=== PATIENT | female | born 1955 | race Caucasian/White ===

== ENCOUNTER → 2019-07-28 | Outpatient (CLI) | payer MEDICARE, OTHER ==
[2019-07-28 11:03] VITALS: BP 140/84; PULSE 100; RESP 20; TEMP 98.6
--- NOTE | 2019-07-28 11:51 | P.GSHP ---
History of Present Illness H&P Date: 07/28/19 Chief Complaint: Abnormal left breast mammogram Tamy is a 64-year-old white female who had a first time mammogram performed at the beginning of May as per the patient. She was told the right side was OKm however, a lesion was seen of the left breast. She then had a left breast diagnostic mammogram which revealed a 4 mm spiculated density along the superior portion of the left breast visible on slice #24 out of 29. And on the MLO slice #40 out of 65. 3-D stereotactic core biopsy is recommended. The patient had an ultrasound done on the same date and the ultrasound revealed a hypoechoic lesion at the superior 11:00 oclock portion without acoustic enhancement the findings were not consistent with a simple cyst. The lesion was felt to be too small to characterize on ultrasound. The patient does not feel any masses or nodules in her breast. She is not complaining of any nipple discharge or skin changes. She has not had any recent history of trauma or infection in the breast. She does not take hormones. She drinks coffee several pots/day. She does not eat chocolate. She smokes 1 pack/4 days. Family history: Negative Hormonal history: Menarche: 12 , breast fed: none, age at first : 16 menopause: hysterectomy at 45, she believes took ovaries, done at the time of a bladder suspension BCP: none hormones: none Surgical history: Total abdominal hysterectomy 3 C-sections appy Medical History: arthritis Social History: smoke: 1 pack/ 4 days for 45 years alcohol: none drugs: none - Constitutional Constitutional: Denies chills, Denies fever - EENT Eyes: bilateral blurred vision (beginning of macular degeneration) Ears: deny: decreased hearing, tinnitus Ears, nose, mouth and throat: Denies headache, Denies sore throat - Breasts Breasts: bilateral: as per HPI - Cardiovascular Cardiovascular: Denies chest pain, Denies shortness of breath - Respiratory Comment: COPD Respiratory: Reports cough - Gastrointestinal Comment: PUD Gastrointestinal: Denies abdominal pain, Denies diarrhea, Denies nausea, Denies vomiting - Genitourinary (Female) Genitourinary: Denies dysuria, Denies hematuria - Menstruation Menstruation: Reports post hysterectomy - Musculoskeletal Comment: back pain, arthritis - Integumentary Integumentary: Reports pruritus, Denies rash - Neurological Neurological: Denies numbness, Denies weakness - Psychiatric Psychiatric: Reports depression, Denies anxiety - Endocrine Comment: gained weight with pandemic Endocrine: Reports weight change, Denies fatigue - Hematologic/Lymphatic Comment: none - Allergic/Immunologic Allergic/Immunologic: Reports as per HPI Past Medical History History of Any Multi-Drug Resistant Organisms: None Reported Smoking Status: Current every day smoker Medications and Allergies Home Medications Medication Instructions Recorded Confirmed Type Albuterol Sulfate [Albuterol 1 puff PO Q4-6H 07/28/19 07/28/19 History Sulfate Hfa] Alendronate Sodium [Fosamax] 5 mg PO DAILY 07/28/19 07/28/19 History Beclomethasone Dip 80 Mcg/Puff 1 puff INHALATION TID 07/28/19 07/28/19 History [Qvar 80 mcg] Cyclobenzaprine [Flexeril] 10 mg PO TID 07/28/19 07/28/19 History LORazepam [Ativan] 1 mg PO BID 07/28/19 07/28/19 History Levothyroxine Sodium [Synthroid] 50 mcg PO DAILY 07/28/19 07/28/19 History Omeprazole [PriLOSEC] 40 mg PO DAILY 07/28/19 07/28/19 History Allergies Allergy/AdvReac Type Severity Reaction Status Date / Time No Known Allergies Allergy Unverified 07/28/19 11:03 Surgical - Exam Vital Signs Temp Pulse Resp BP Pulse Ox 98.6 F 100 20 140/84 97 07/28/19 10:58 07/28/19 10:58 07/28/19 10:58 07/28/19 10:58 07/28/19 10:58 BMI 30.1 - General well developed, well nourished, no distress - Eyes normal ocular movement - ENT no hearing loss, no congestion - Neck no masses, trachea midline - Respiratory normal expansion, normal respiratory effort, clear to auscultation - Cardiovascular Rhythm: regular Heart Sounds: normal: S1, S2 - Abdomen Abdomen: soft, non tender, no guarding, no rigid, no rebound - Integumentary normal turgor - Neurologic no disoriented, no combative - Musculoskeletal normal gait, normal posture - Psychiatric oriented to time, oriented to person, oriented to place, speech is normal, memory intact breast exam: BRA 36B inspection: Right breast smaller than left breast, ptosis grade 2 bilateral Palpation: Right breast: Multi-positional exam fibrocystic changes, no dominant masses or nodules of concern Right axilla: No adenopathy of concern Left breast: Multi-positional exam no dominant masses or nodules of concern Left axilla: No adenopathy of concern Results Mammogram and ultrasound report of the left breast reviewed Have requested that the mammogram report of the right breast BX obtained Assessment and Plan Assessment: Impression: 1. Asymmetry of the breast 2. Radiographic abnormality left breast 3. Radiograph report of the right breast is not available 4. Arthritis/back pain 5. depression/ patient takes ativan 1 mg BID as needed Plan: 1. 3-D stereotactic core biopsy of the left breast 2. Obtain radiograph report of mammogram of the right breast 3. follow up after biopsy Encounter 45 minutes, greater than 50% of time in planning and counselling CC: Dr. Aguilera Time with Patient: Greater than 30
== END | disposition home or self-care (01) ==
LOC: WWCWWP 10:42
PROVIDERS: ATTEND Surgery
DX: Z53.9 Procedure and treatment not carried out, unspecified reason (principal)

== ENCOUNTER → 2019-08-12 | Outpatient (CLI) | payer MEDICARE, OTHER ==
[2019-08-12 14:50] VITALS: BP 146/84; PULSE 97; RESP 20; TEMP 98.4
--- NOTE | 2019-08-12 15:22 | P.PN ---
Subjective Progress Note Date: 08/12/19 Principal diagnosis: left breast stage 1A cancer; [id number]+/FL+ Her2-G1 Tamy is a 64-year-old white female who had a first time mammogram performed at the beginning of May as per the patient. She was told the right side was OKm however, a lesion was seen of the left breast. She then had a left breast diagnostic mammogram which revealed a 4 mm spiculated density along the superior portion of the left breast visible on slice #24 out of 29. And on the MLO slice #40 out of 65. 3-D stereotactic core biopsy is recommended. The patient had an ultrasound done on the same date and the ultrasound revealed a hypoechoic lesion at the superior 11:00 oclock portion without acoustic enhancement the findings were not consistent with a simple cyst. The lesion was felt to be too small to characterize on ultrasound. The patient does not feel any masses or nodules in her breast. She is not complaining of any nipple discharge or skin changes. She has not had any recent history of trauma or infection in the breast. She does not take hormones. She drinks coffee several pots/day. She does not eat chocolate. She smokes 1 pack/4 days. Tamy underwent a stero biopsy 3D at [facility] on 08-04-19. Pathology was a G1 ER+/FL+ invasive ductal cancer. Her 2- She is not complaining of any porblems related to the biopsy. Family history: Negative Hormonal history: Menarche: 12 , breast fed: none, age at first : 16 menopause: hysterectomy at 45, she believes took ovaries, done at the time of a bladder suspension BCP: none hormones: none Surgical history: Total abdominal hysterectomy 3 C-sections appy Medical History: arthritis Social History: smoke: 1 pack/ 4 days for 45 years alcohol: none drugs: none - Constitutional Constitutional: Denies chills, Denies fever - EENT Eyes: bilateral blurred vision (beginning of macular degeneration) Ears: deny: decreased hearing, tinnitus Ears, nose, mouth and throat: Denies headache, Denies sore throat - Breasts Breasts: bilateral: as per HPI - Cardiovascular Cardiovascular: Denies chest pain, Denies shortness of breath - Respiratory Comment: COPD Respiratory: Reports cough - Gastrointestinal Comment: PUD Gastrointestinal: Denies abdominal pain, Denies diarrhea, Denies nausea, Denies vomiting - Genitourinary (Female) Genitourinary: Denies dysuria, Denies hematuria - Menstruation Menstruation: Reports post hysterectomy - Musculoskeletal Comment: back pain, arthritis - Integumentary Integumentary: Reports pruritus, Denies rash - Neurological Neurological: Denies numbness, Denies weakness - Psychiatric Psychiatric: Reports depression, Denies anxiety - Endocrine Comment: gained weight with pandemic Endocrine: Reports weight change, Denies fatigue - Hematologic/Lymphatic Comment: none - Allergic/Immunologic Allergic/Immunologic: Reports as per HPI Past Medical History History of Any Multi-Drug Resistant Organisms: None Reported Smoking Status: Current every day smoker Medications and Allergies Home Medications Medication Instructions Recorded Confirmed Type Albuterol Sulfate [Albuterol 1 puff PO Q4-6H 07/28/19 07/28/19 History Sulfate Hfa] Alendronate Sodium [Fosamax] 5 mg PO DAILY 07/28/19 07/28/19 History Beclomethasone Dip 80 Mcg/Puff 1 puff INHALATION TID 07/28/19 07/28/19 History [Qvar 80 mcg] Cyclobenzaprine [Flexeril] 10 mg PO TID 07/28/19 07/28/19 History LORazepam [Ativan] 1 mg PO BID 07/28/19 07/28/19 History Levothyroxine Sodium [Synthroid] 50 mcg PO DAILY 07/28/19 07/28/19 History Omeprazole [PriLOSEC] 40 mg PO DAILY 07/28/19 07/28/19 History Allergies Allergy/AdvReac Type Severity Reaction Status Date / Time No Known Allergies Allergy Unverified 07/28/19 11:03 Objective - Exam BMI 30.1 - Constitutional General appearance: Present: cooperative - EENT Eyes: Present: EOMI ENT: Present: hearing grossly normal - Respiratory Respiratory: bilateral: CTA - Cardiovascular Rhythm: regular Heart sounds: normal: S1, S2 - Integumentary Integumentary: Present: normal turgor - Musculoskeletal Musculoskeletal: Present: gait normal - Psychiatric Psychiatric: Present: A&O x's 3, appropriate affect, intact judgment & insight - Additional findings Additional findings: breast exam: left breast: biopsy site clean and no evidence of infection Assessment and Plan Assessment: Impression: 1. Left breast stage IA invasive ductal carcinoma Plan: 1. Left breast needle localization lumpectomy, possible mastopexy incision, possible oncoplastic tissue transfer 2. Left axillary sentinel node injection, left axillary sentinel node biopsy, possible axillary node dissection left Risk and benefits of the procedure discussed with the patient. Risks include but are not limited to bleeding, infection, possible reaction to the anesthetic. The possibility of positive margins which required reexcision were discussed. Surgical treatment options of the breast included mastectomy plus or minus reconstruction versus lumpectomy via needle local. The patient is not interested in a mastectomy or plastic surgery consult. [place] biopsy and possible axillary node dissection were discussed as well. Risks including but not limited to possible lymphedema, decreased sensation to the inner arm were discussed. The patient understands and wishes to proceed. Veronica Velez nurse navigator was present to talk with the patient as well. CC: Ale (Webb) encounter 40 minutes, > 50% of time spent in planning and counselling Time with Patient: Greater than 30
== END | disposition home or self-care (01) ==
LOC: WWCWWP 14:24
PROVIDERS: ATTEND Surgery
DX: Z53.9 Procedure and treatment not carried out, unspecified reason (principal)

== ENCOUNTER → 2019-09-16 | Outpatient (CLI) | payer MEDICARE, OTHER ==
[2019-09-16 15:27] VITALS: BP 123/60; PULSE 103; RESP 18; TEMP 98.3
--- NOTE | 2019-09-16 15:47 | P.PN ---
Subjective Progress Note Date: 09/16/19 Principal diagnosis: Stage 1A left breast cancer [id number]+/Pr+ Her2- G1 left breast stage 1A cancer; [id number]+/AZ+ Her2-G1 Tamy is a 64-year-old white female who had a first time mammogram performed at the beginning of May as per the patient. She was told the right side was OK however, a lesion was seen of the left breast. She then had a left breast diagnostic mammogram which revealed a 4 mm spiculated density along the superior portion of the left breast visible on slice #24 out of 29. And on the MLO slice #40 out of 65. 3-D stereotactic core biopsy is recommended. The patient had an ultrasound done on the same date and the ultrasound revealed a hypoechoic lesion at the superior 11:00 oclock portion without acoustic enhancement the findings were not consistent with a simple cyst. The lesion was felt to be too small to characterize on ultrasound. The patient does not feel any masses or nodules in her breast. She is not complaining of any nipple discharge or skin changes. She has not had any recent history of trauma or infection in the breast. She does not take hormones. She drinks coffee several pots/day. She does not eat chocolate. She smokes 1 pack/4 days. Tamy underwent a stero biopsy 3D at [facility] on 08-04-19. Pathology was a G1 ER+/AZ+ invasive ductal cancer. Her 2- She is not complaining of any porblems related to the biopsy. Family history: Negative Hormonal history: Menarche: 12 , breast fed: none, age at first : 16 menopause: hysterectomy at 45, she believes took ovaries, done at the time of a bladder suspension BCP: none hormones: none Surgical history: Total abdominal hysterectomy 3 C-sections appy Medical History: arthritis Social History: smoke: 1 pack/ 4 days for 45 years alcohol: none drugs: none - Constitutional Constitutional: Denies chills, Denies fever - EENT Eyes: bilateral blurred vision (beginning of macular degeneration) Ears: deny: decreased hearing, tinnitus Ears, nose, mouth and throat: Denies headache, Denies sore throat - Breasts Breasts: bilateral: as per HPI - Cardiovascular Cardiovascular: Denies chest pain, Denies shortness of breath - Respiratory Comment: COPD Respiratory: Reports cough - Gastrointestinal Comment: PUD Gastrointestinal: Denies abdominal pain, Denies diarrhea, Denies nausea, Denies vomiting - Genitourinary (Female) Genitourinary: Denies dysuria, Denies hematuria - Menstruation Menstruation: Reports post hysterectomy - Musculoskeletal Comment: back pain, arthritis - Integumentary Integumentary: Reports pruritus, Denies rash - Neurological Neurological: Denies numbness, Denies weakness - Psychiatric Psychiatric: Reports depression, Denies anxiety - Endocrine Comment: gained weight with pandemic Endocrine: Reports weight change, Denies fatigue - Hematologic/Lymphatic Comment: none - Allergic/Immunologic Allergic/Immunologic: Reports as per HPI Past Medical History History of Any Multi-Drug Resistant Organisms: None Reported Smoking Status: Current every day smoker Objective - Vital Signs Vital signs: Vital Signs Temp 98.3 F 09/16/19 15:24 Pulse 103 H 09/16/19 15:24 Resp 18 09/16/19 15:24 BP 123/60 09/16/19 15:24 Pulse Ox 96 09/16/19 15:24 Intake & Output 09/15/19 09/16/19 09/16/19 18:59 06:59 18:59 Weight 77.111 kg - Exam BMI 30.1 - Constitutional General appearance: Present: obese - EENT Eyes: Present: EOMI ENT: Present: hearing grossly normal - Neck Neck: Present: normal ROM - Respiratory Respiratory: bilateral: CTA - Cardiovascular Rhythm: regular Heart sounds: normal: S1, S2 - Gastrointestinal General gastrointestinal: Present: normal bowel sounds, soft - Integumentary Integumentary: Present: normal turgor - Musculoskeletal Musculoskeletal: Present: gait normal - Psychiatric Psychiatric: Present: A&O x's 3, appropriate affect, intact judgment & insight - Additional findings Additional findings: Breast Exam: Bra 36B inspection: This is bilateral grade 2/3, left breast slightly larger than right breast Palpation: Right breast: Multiple positional exam no dominant masses or nodules of concern fibrocystic changes Right axilla: No adenopathy of concern Left breast: Multiple positional exam no dominant masses or nodules of concern, fibrocystic changes Left axilla: No adenopathy of concern Assessment and Plan Assessment: Impression: 1. Left breast stage IA invasive ductal carcinoma 2. pathology done at [facility] must be reviewed here Plan: 1. Left breast needle localization partial mastectomy, possible mastopexy incision, possible adjacent tissue transfer 2. Left axillary sentinel node injection, left axillary sentinel node biopsy, possible axillary node dissection left Risks and benefits of the procedure discussed with the patient. Risks include but are not limited to bleeding, infection, possible reaction to the anesthetic. The possibility of positive margins which would require reexcision were discussed. Surgical treatment options of the breast including mastectomy plus or minus reconstruction versus lumpectomy via no needle localization were discussed. The patient is not interested in mastectomy a plastic surgical consult at this time. Seminal biopsy and possible axillary node dissection were discussed as well. Risks include but are not limited to possible lymphedema, decreased sensation to the interim, bleeding or infection. The patient understands and wishes to proceed. Cc: Dr. Aguilera
== END | disposition home or self-care (01) ==
LOC: WWCWWP 14:35
PROVIDERS: ATTEND Surgery
DX: Z53.9 Procedure and treatment not carried out, unspecified reason (principal)

== ENCOUNTER 2019-09-27 08:58 | Day surgery (SDC) | payer MEDICARE, OTHER ==
[2019-09-21 14:25] VITALS: BMI 30.1
[~2019-09-27 08:58] MED LIST: DEXAMETHASONE SOD PHOSPHATE 10 MG/ML 1 ML VIAL IV ONE; HEPARIN SODIUM,PORCINE 5,000 UNIT/ML 1 ML VIAL SQ ONE; LACTATED RINGERS 1,000 ML IV SCH; LIDOCAINE 1% (10MG/ML) FOR IV START INTRADERMA PRN; MIDAZOLAM 2 MG/2 ML VIAL IV PRN; ONDANSETRON 4 MG/2 ML VIAL IVP ONE; Pre Op ABX Message 1 EACH MISC MISCELLANE ONE; fentaNYL (PF) 50 MCG/ML 2 ML AMP IV PRN
[2019-09-27] MEDS ORDERED: ALPRAZolam 0.25 MG TAB PO ONE (09:32)
[2019-09-27] MEDS ORDERED: ALPRAZolam 0.25 MG TAB ONE (09:33)
[2019-09-27] MEDS ORDERED: LIDOCAINE 1% INJ 10MG/ML (20 ML MDV) SQ ONE ×3 (10:31→14:44)
[2019-09-27] MEDS ORDERED: HEPARIN SODIUM,PORCINE 5,000 UNIT/ML 1 ML VIAL ONE (11:23)
[2019-09-27] MEDS ORDERED: ONDANSETRON 4 MG/2 ML VIAL ONE (11:23)
[2019-09-27] MEDS ORDERED: PROPOFOL 10 MG/ML 20 ML VIAL IV ONE (12:59)
[2019-09-27] MEDS ORDERED: fentaNYL (PF) 50 MCG/ML 2 ML AMP ONE (12:59)
[2019-09-27] MEDS ORDERED: PHENYLEPHRINE-0.9% NACL SYG 1 MG/10 ML SYRINGE ONE (12:59)
[2019-09-27] MEDS ORDERED: ePHEDrine SULFATE/0.9% NACL/PF 50 MG/5 ML SYRINGE IV ONE (12:59)
[2019-09-27] MEDS ORDERED: SUCCINYLCHOLINE CHLORIDE 100 MG/5 ML SYR IV ONE (12:59)
[2019-09-27] MEDS ORDERED: LIDOCAINE 1% INJ 10MG/ML (20 ML MDV) ONE (12:59)
[2019-09-27] MEDS ORDERED: MIDAZOLAM 2 MG/2 ML VIAL ONE (12:59)
--- NOTE | 2019-09-27 13:26 | NM ---
EXAMINATION TYPE: NM sentinel node injection DATE OF EXAM: 09/27/2019 COMPARISON: NONE INDICATION: Abnormal mammogram. Informed consent was obtained. A timeout was performed. The area around the left nipple was cleansed with alcohol. The skin was anesthetized with 1% Lidocai ne with sodium bicarbonate. In a single dose, a total of 498 millicuries Technetium 99m Tilmanocept was injected. The patient tolerated the procedure very well. IMPRESSIONS: 1.. Successful injection for sentinel node evaluation.
[2019-09-27] MEDS ORDERED: LACTATED RINGERS 1,000 ML IV ONE (14:20)
--- NOTE | 2019-09-27 14:57 | P.OP ---
Date of Procedure: 09/27/19 Preoperative Diagnosis: Stage IA left breast cancer Postoperative Diagnosis: Same Procedure(s) Performed: Elim node biopsy, partial mastectomy, bronchoplasty tissue transfer, mastopexy Anesthesia: TC Surgeon: Lizabeth Elizondo Estimated Blood Loss (ml): 8 IV fluids (ml): 1,200 Pathology: other (sentinal lymph node, breast tissue) Condition: stable Disposition: same day Indications for Procedure: Core Biopsy-proven stage IA left breast cancer Operative Findings: dense breast tissue Description of Procedure: Tamy is a 64-year-old white female who underwent a biopsy of the lesion in the left breast. This was positive for this invasive ductal carcinoma. She wished to have in the conchal plastic approach with breast conservation to section of the tumor. Following needle localization of the area of concern in the radiology department today and was taken to the operative suite. The sentinel node injection was also performed in the radiology department. Following induction of general anesthesia the left breast and axilla were prepped and draped in a sterile fashion. Using the [place] counter the area of increased radioactivity in the axilla was identified. An incision was made and carried down to the deep lymph nodes. Using the Harmonic scalpel a radioactive lymph node was removed after it was identified. The 10 second count on the node was 18,882. The 10 second background count of the axilla was approximately 54. No other palpable nodes of concern were identified. The wound was irrigated. After we were assured that hemostasis was attained the deep tissues were closed using 3-0 Vicryl suture. The skin was closed using 4-0 Monocryl. Following this the left breast was approached. In the preoperative skin howard were placed for a crescent mastopexy incision. The apex of the crescent was approximately 2 cm above the superior areolar edge. The skin of the crescent was scored. The inferior portion of the crescent was scalloped. The skin was de-epithelialized. The breast tissue was entered within the de- epithelialized zone. Dissection in the anterior mammary fascia was performed up to the shaft of the needle. The shaft of the needle was then brought into the operative wound. The tissue was grasped using Allis clamps. The tissue was dissected down onto the pectoralis major muscle. Circumferential dissection around the needle was performed and the tissue was excised. Following this the medial and lateral pillars of breast tissue were mobilized. Approximately 9 cm x 4 cm a 32 cm of tissue was mobilized medially. Laterally approximately 8 cm x 3 cm of breast tissue was mobilized. This was a total of approximately 50 cm of tissue mobilized. Following this titanium clips were placed to cristiane the cavity. The specimen was painted for orientation. Radiograph revealed the area of concern had been removed. The pillars of tissue had also been free from the pectoralis muscle. After we were assured that hemostasis was attained the pillars were brought together from superior to inferior. They were secured using 3-0 Vicryl suture. The subcutaneous tissues were closed with 3-0 Vicryl suture. A subcuticular 4-0 Monocryl suture was placed. 10 mL of 1% lidocaine was injected into the incision. Steri-Strips were applied to both the breast and axillary incisions. The patient tolerated the procedure in stable condition. All instrument and sponge counts were correct at the end of the case.
--- NOTE | 2019-09-27 14:59 | P.DS ---
Providers Attending physician: Lizabeth Elizondo Primary care physician: Lay Aguilera DO Plan - Discharge Summary Discharge Rx Participant: Yes New Discharge Prescriptions: No Action Alendronate Sodium [Fosamax] 5 mg PO DAILY Albuterol Sulfate [Albuterol Sulfate Hfa] 1 puff PO Q4-6H PRN PRN Reason: Dyspnea Omeprazole [PriLOSEC] 40 mg PO DAILY LORazepam [Ativan] 1 mg PO BID Cyclobenzaprine [Flexeril] 10 mg PO TID Levothyroxine Sodium [Synthroid] 50 mcg PO DAILY Beclomethasone Dip 80 Mcg/Puff [Qvar 80 mcg] 1 puff INHALATION TID Discharge Medication List Albuterol Sulfate [Albuterol Sulfate Hfa] 1 puff PO Q4-6H PRN 07/28/19 [History] Alendronate Sodium [Fosamax] 5 mg PO DAILY 07/28/19 [History] Beclomethasone Dip 80 Mcg/Puff [Qvar 80 mcg] 1 puff INHALATION TID 07/28/19 [History] Cyclobenzaprine [Flexeril] 10 mg PO TID 07/28/19 [History] LORazepam [Ativan] 1 mg PO BID 07/28/19 [History] Levothyroxine Sodium [Synthroid] 50 mcg PO DAILY 07/28/19 [History] Omeprazole [PriLOSEC] 40 mg PO DAILY 07/28/19 [History] Follow up Appointment(s)/Referral(s): Lizabeth Elizondo MD [STAFF PHYSICIAN] - 1 Week Activity/Diet/Wound Care/Special Instructions: do not drive for 24 hours from discharge, do not drive if taking narcotic pain medication May shower after 48 hours wear bra at all times Discharge Disposition: HOME SELF-CARE
--- NOTE | 2019-09-27 15:01 | P.NAPBC ---
NAPBC Queries - NAPBC Queries Was patient's case review presented at [facility] tumor board? If no, comment.: Yes Was patient's pathology reviewed at [facility]? If no, comment.: Yes Was breast conservation surgery offered? If no, comment.: Yes Was sentinel node biopsy offered? If no, comment.: Yes Was diagnosis confirmed by percutaneous core biopsy? If no, comment.: Yes Is patient mastectomy patient?: No Was a preop referral to reconstructive surgeon offered?: No Clinical Stage: Stage IA
[2019-09-27 15:16] VITALS: TEMP 97
[2019-09-27] MEDS: HYDROmorphone 0.5 MG/0.5 ML SYRINGE IVP PRN ×2 (15:22→15:26)
[2019-09-27 15:47] VITALS: PULSE 91
[2019-09-27 15:55] VITALS: RESP 16
[2019-09-27 16:09] VITALS: BP 123/57
--- NOTE | 2019-09-27 16:39 | MM ---
EXAMINATION TYPE: MG pre op needle loc LT DATE OF EXAM: 09/27/2019 COMPARISON: 08/04/2019 mammogram CLINICAL HISTORY: Breast cancer TECHNIQUE: Needle localization with wire placement and surgical excision of area of concern in the left breast. FINDINGS: The procedure of needle localization with wire placement for surgical excision was explained to the patient. Risk, benefits, and alternatives were discussed. An informed consent was then obtained. A timeout was performed. The overlying skin was prepped and draped in usual sterile fashion. Lidocaine 1% was used as anesthetic into the skin and subcutaneous tissue up to the level of area of concern. A 7 cm needle was used. This was placed via a lateral approach under mammographic guidance. Subsequent 90 degrees mammogram show the needle to be in satisfactory position relative to the targeted area. The wire was placed through the needle and the needle was withdrawn. The wire was fixed to patient's skin. Images were marked for surgeon. Images are reviewed and discussed with the referring surgeon in person. The patient tolerated the procedure well without any immediate complication. Specimen: The wire and the targeted biopsy marker are identified within the specimen mammogram. IMPRESSION: 1. Successful wire localization and excision. Recommendations: 1. Recommendations are pending pathology results. Pathology Results: Malignant A. 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 Background lobular neoplasia (ALH/LCIS) and florid proliferative fibrocystic changes including sclerosing adenosis with calcifications and intraductal papillomas. See Surgical Pathology Cancer Case Summary and Comment. B. DE-EPITHELIALIZED SKIN, LEFT BREAST: Unremarkable benign skin. C. SENTINEL NODE, LEFT BREAST: Lymph node with partial fat replacement, negative for metastasis. CK7 and MARIUSZ immunoperoxidase stains are confirmatory (controls appropriate). Recommendation Follow up mammogram of the left breast in 6 months. Surgical consult of the left breast. SENG
== END 2019-09-27 16:20 | disposition home or self-care (01) ==
LOC: OR 08:58
PROVIDERS: ATTEND Surgery
DX: C50.812 Malignant neoplasm of overlapping sites of left female breast (principal); J45.909 Unspecified asthma, uncomplicated; E07.9 Disorder of thyroid, unspecified; J43.9 Emphysema, unspecified; E78.5 Hyperlipidemia, unspecified; M19.90 Unspecified osteoarthritis, unspecified site; K21.9 Gastro-esophageal reflux disease without esophagitis; F17.210 Nicotine dependence, cigarettes, uncomplicated; Z79.51 Long term (current) use of inhaled steroids; Z79.899 Other long term (current) drug therapy; Z79.890 Hormone replacement therapy; Z90.710 Acquired absence of both cervix and uterus; Z90.49 Acquired absence of other specified parts of digestive tract
CPT/HCPCS: 38525; 19301; 88305; 88342; 88307; 88341; 76098; 38792; A9520; J2250; J1644; J1100; J2405; J2001; J3010; J2370; J0330; J2704; J1170

== ENCOUNTER → 2019-11-11 | Outpatient (CLI) | payer MEDICARE, OTHER ==
[2019-11-11 12:17] VITALS: BP 150/83; PULSE 106; RESP 20; TEMP 97.8
--- NOTE | 2019-11-11 12:32 | P.PN ---
Subjective Progress Note Date: 11/11/19 Principal diagnosis: Possible stitch abscess Tamy is a 64-year-old white female status post left breast lumpectomy for a stage IA invasive ductal carcinoma. This is ER/NH positive, HER-2 negative. She had resection performed on 09-27-19. Breast margins were negative and sentine l lymph node was negative. She was seen by radiation oncology preoperatively and is now undergoing her second week of treatment. She states that last week she developed some erythema of the breast and an infection at the incision site. She developed a stitch abscess in the stitch was removed. She states today that she may have another stitch which is extruding. She will also follow with medical oncology for anti-estrogen therapy she will start after the radiation therapy is completed She does not have any fever or chills. Objective - Vital Signs Vital signs: Vital Signs Temp 97.8 F 11/11/19 12:12 Pulse 106 H 11/11/19 12:12 Resp 20 11/11/19 12:12 BP 150/83 11/11/19 12:12 Pulse Ox 96 11/11/19 12:12 Intake & Output 11/10/19 11/11/19 11/11/19 18:59 06:59 18:59 Weight 76.657 kg - Exam BMI 29.9 - Constitutional General appearance: Present: average body habitus - EENT Eyes: Present: EOMI ENT: Present: hearing grossly normal - Respiratory Respiratory: bilateral: CTA - Cardiovascular Rhythm: regular Heart sounds: normal: S1, S2 - Integumentary Integumentary Comment(s): Incision left breast: No stitch is noted to be extruding on today's exam there is no evidence of infection on today's exam Assessment and Plan Assessment: Impression: 1. Patient status post left breast lumpectomy for stage I invasive ductal carcinoma. She is presently receiving radiation therapy nurse in question is whether she had a stitch abscess no abscesses noted on today's exam, and no extruding stitches noted particular examination of the lateral aspect of the incision did not reveal any specific suture. Plan: 1. Completion radiation therapy 2. Follow up here in 2 months 3. Continue antiestrogen therapy CC:DR. Aguilera
== END | disposition home or self-care (01) ==
LOC: WWCWWP 10:42
PROVIDERS: ATTEND Surgery
DX: Z53.9 Procedure and treatment not carried out, unspecified reason (principal)

== ENCOUNTER → 2020-01-13 | Outpatient (CLI) | payer MEDICARE, OTHER ==
[2020-01-13 13:44] VITALS: BP 131/73; PULSE 74; RESP 18; TEMP 98.5
--- NOTE | 2020-01-13 14:03 | P.PN ---
Subjective Progress Note Date: 01/13/20 Principal diagnosis: left breast stage IA invasive ductal carcinoma Stage 1A left breast cancer [id number]+/Pr+ Her2- G1 Tamy is a 64-year-old white female who had a first time mammogram performed at the beginning of May as per the patient. She was told the right side was OK however, a lesion was seen of the left breast. She then had a left breast diagnostic mammogram which revealed a 4 mm spiculated density along the superior portion of the left breast visible on slice #24 out of 29. And on the MLO slice #40 out of 65. 3-D stereotactic core biopsy is recommended. The patient had an ultrasound done on the same date and the ultrasound revealed a hypoechoic lesion at the superior 11:00 oclock portion without acoustic enhancement the findings were not consistent with a simple cyst. The lesion was felt to be too small to characterize on ultrasound. The patient does not feel any masses or nodules in her breast. She is not complaining of any nipple discharge or skin changes. She has not had any recent history of trauma or infection in the breast. She does not take hormones. She drinks coffee several pots/day. She does not eat chocolate. She smokes 1 pack/4 days. Tamy underwent a stero biopsy 3D at [facility] on 08-04-19. Pat hology was a G1 ER+/MN+ invasive ductal cancer. Her 2- She is not complaining of any porblems related to the biopsy. On 09-27-2019 she underwent a left breast lumpectomy and SNB. Margins were neg ative, and sentinel node was negative. She underwent radiation therapy and completed this on . She is on Aromasin. She has no complaints related to the treatment. No new lumps masses or nodules in the breast. She is doing well at this time. Family history: Negative Hormonal history: Menarche: 12 , breast fed: none, age at first : 16 menopause: hysterectomy at 45, she believes took ovaries, done at the time of a bladder suspension BCP: none hormones: none Surgical history: Total abdominal hysterectomy 3 C-sections appy left breast partial mastectomy, SNB Medical History: arthritis Social History: smoke: 1 pack/ 4 days for 45 years alcohol: none drugs: none - Constitutional Constitutional: Denies chills, Denies fever - EENT Eyes: bilateral blurred vision (beginning of macular degeneration) Ears: deny: decreased hearing, tinnitus Ears, nose, mouth and throat: Denies headache, Denies sore throat - Breasts Breasts: bilateral: as per HPI - Cardiovascular Cardiovascular: Denies chest pain, Denies shortness of breath - Respiratory Comment: COPD Respiratory: Reports cough - Gastrointestinal Comment: PUD Gastrointestinal: Denies abdominal pain, Denies diarrhea, Denies nausea, Denies vomiting - Genitourinary (Female) Genitourinary: Denies dysuria, Denies hematuria - Menstruation Menstruation: Reports post hysterectomy - Musculoskeletal Comment: back pain, arthritis - Integumentary Integumentary: Reports pruritus, Denies rash - Neurological Neurological: Denies numbness, Denies weakness - Psychiatric Psychiatric: Reports depression, Denies anxiety - Endocrine Comment: gained weight with pandemic Endocrine: Reports weight change, Denies fatigue - Hematologic/Lymphatic Comment: none - Allergic/Immunologic Allergic/Immunologic: Reports as per HPI Objective - Vital Signs Vital signs: Vital Signs Temp 98.5 F 01/13/20 13:42 Pulse 74 01/13/20 13:42 Resp 18 01/13/20 13:42 BP 131/73 01/13/20 13:42 Pulse Ox 96 01/13/20 13:42 Intake & Output 01/12/20 01/13/20 01/13/20 18:59 06:59 18:59 Weight 75.75 kg - Exam BMI 29.6 - Constitutional General appearance: Present: average body habitus - EENT Eyes: Present: EOMI ENT: Present: hearing grossly normal - Neck Neck: Present: normal ROM - Respiratory Respiratory: bilateral: CTA - Cardiovascular Rhythm: regular Heart sounds: normal: S1, S2 - Gastrointestinal General gastrointestinal: Present: soft - Integumentary Integumentary: Present: normal turgor - Musculoskeletal Musculoskeletal: Present: gait normal - Psychiatric Psychiatric: Present: A&O x's 3, appropriate affect - Additional findings Additional findings: Breast exam: BRA: 36B inspection: Bilateral grade 2 ptosis Palpation: Right breast: Multiple positional exam fibrocystic changes no dominant masses or nodules of concern Right axilla: No adenopathy of concern Left breast: Well-healed scar from prior surgery no dominant masses or nodules of concern radiation changes Left axilla: No adenopathy of concern Assessment and Plan Assessment: Impression: 1. stage IA left breast cancer/ no evidence of recurrence 2. patient on arominsin following with medical oncology 3. follow with Dr. Shell Plan: 1. Bilateral mammogram back on schedule May 2020 2. Follow-up here in 4 months for physician exam 3. Continue to follow with medical and radiation oncology 4. If patient has any questions or concerns would like to see her sooner Cc: Dr. Aguilera encounter 15 minutes, > 50% of time on planning and counselling
== END | disposition home or self-care (01) ==
LOC: WWCWWP 13:17
PROVIDERS: ATTEND Surgery
DX: Z53.9 Procedure and treatment not carried out, unspecified reason (principal)

== ENCOUNTER → 2020-02-13 | Outpatient (CLI) | payer MEDICARE, OTHER ==
--- NOTE | 2020-02-13 16:28 | BD ---
EXAMINATION TYPE: Axial Bone Density DATE OF EXAM: 02/13/2020 COMPARISON: NONE CLINICAL HISTORY: Height: 61.5 IN Weight: 167 LBS FRAX RISK QUESTIONS: Current Tobacco Use: YES RISK FACTORS HISTORY OF: Family History of Osteoporosis: YES MOTHER,FATHER, Active: MODERATE Diet low in dairy products/other sources of calcium: YES Postmenopausal woman: TOTAL HYST AGE 45 Frequent falls: UNSTEADY ON FEET 4+ FALLS IN THE LAST YEAR MEDICATIONS: Thyroid Medications: YES Which medication: Levothyroxine How Lon+ YEARS Osteoporosis Medications: YES Which medication: Fosamax How Lon+ YEARS Additional Medications: LEVOTHYROXINE, FOSAMAX, ANASTROZOLE,CHOLESTEROL MEDS, FLEXERIL, ATIVAN Additional History: BREAST CANCER WITH RADIATION EXAM MEASUREMENTS: Bone mineral densitometry was performed using the [employer] System. Bone mineral density as measured about the Lumbar spine is: ----- L1-L4(G/cm2): 1.005 T Score Values are as follows: ----- L2: -2.4 ----- L3: 0.2 ----- L4: -0.3 ----- L1-L4: -1.5 Bone mineral density BASELINE Bone mineral density about the R hip (g/cm2): 0.712 Bone mineral density about the L hip (g/cm2): 0.709 T Score values are as follows: -----R Neck: -2.3 -----L Neck: -2.4 -----R Total: -1.5 -----L Total: -1.7 Bone mineral density BASELINE IMPRESSION: Osteopenia (T Score between -2.5 and -1). There is slightly increased risk of fracture and the patient may be considered for treatment. Re-Screen 2-5 years. NOTE: T-SCORE=SD OF THE YOUNG ADULT MEAN.
== END | disposition home or self-care (01) ==
LOC: RADBDWWP 09:49
PROVIDERS: ATTEND Internal Medicine Hematology & Oncology
DX: M85.80 Other specified disorders of bone density and structure, unspecified site (principal); C50.412 Malignant neoplasm of upper-outer quadrant of left female breast; Z79.890 Hormone replacement therapy
CPT/HCPCS: 77080

== ENCOUNTER → 2020-06-07 | Outpatient (CLI) | payer MEDICARE, OTHER ==
[2020-06-07 12:03] VITALS: BP 136/85; PULSE 76; RESP 18; TEMP 98.9
--- NOTE | 2020-06-07 12:42 | P.PN ---
Subjective Progress Note Date: 06/07/20 Principal diagnosis: stage 1A left breast cancer left breast stage IA invasive ductal carcinoma Stage 1A left breast cancer [id number]+/Pr+ Her2- G1 Tamy is a 65-year-old white female who had a first time mammogram performed at the beginning of May 2019 as per the patient. She was told the right side was OK however, a lesion was seen of the left breast. She then had a left breast diagnostic mammogram which revealed a 4 mm spiculated density along the superior portion of the left breast visible on slice #24 out of 29. And on the MLO slice #40 out of 65. 3-D stereotactic core biopsy is recommended. The patient had an ultrasound done on the same date and the ultrasound revealed a hypoechoic lesion at the superior 11:00 oclock portion without acoustic enhancement the findings were not consistent with a simple cyst. The lesion was felt to be too small to characterize on ultrasound. The patient did not feel any masses or nodules in her breast. She was not complaining of any nipple discharge or skin changes. She had not had any recent history of trauma or infection in the breast. She did not take hormones. She drinks coffee several pots/day. She does not eat chocolate. She smokes 1 pack/4 days. Tamy underwent a stero biopsy 3D at [facility] on 08-04-19. Pathology was a G1 ER+/MD+ invasive ductal cancer. Her 2- On 09-27-2019 she underwent a left breast lumpectomy and SNB. Margins were negative, and sentinel node was negative. [place] [id number]. She is on Aromasin. She has no complaints related to the treatment. No new lumps masses or nodules in the breast. She is doing well at this time. She had a bilateral mammogram performed on 06-07-20 which was felt to be benign. Routine diagnostic screening recommended. Family history: Negative Hormonal history: Menarche: 12 , breast fed: none, age at first : 16 menopause: hysterectomy at 45, she believes took ovaries, done at the time of a bladder suspension BCP: none hormones: none Surgical history: Total abdominal hysterectomy 3 C-sections appy left breast partial mastectomy, SNB Medical History: arthritis Social History: smoke: 1 pack/ 4 days for 45 years alcohol: none drugs: none - Constitutional Constitutional: Denies chills, Denies fever - EENT Eyes: bilateral blurred vision (beginning of macular degeneration) Ears: deny: decreased hearing, tinnitus Ears, nose, mouth and throat: Denies headache, Denies sore throat - Breasts Breasts: bilateral: as per HPI - Cardiovascular Cardiovascular: Denies chest pain, Denies shortness of breath - Respiratory Comment: COPD Respiratory: Reports cough - Gastrointestinal Comment: PUD Gastrointestinal: Denies abdominal pain, Denies diarrhea, Denies nausea, Denies vomiting - Genitourinary (Female) Genitourinary: Denies dysuria, Denies hematuria - Menstruation Menstruation: Reports post hysterectomy - Musculoskeletal Comment: back pain, arthritis - Integumentary Integumentary: Reports pruritus, Denies rash - Neurological Neurological: Denies numbness, Denies weakness - Psychiatric Psychiatric: Reports depression, Denies anxiety - Endocrine Comment: gained weight with pandemic Endocrine: Reports weight change, Denies fatigue - Hematologic/Lymphatic Comment: none - Allergic/Immunologic Allergic/Immunologic: Reports as per HPI Objective - Vital Signs Vital signs: Vital Signs Temp 98.9 F 06/07/20 12:00 Pulse 76 06/07/20 12:00 Resp 18 06/07/20 12:00 BP 136/85 06/07/20 12:00 Pulse Ox 99 06/07/20 12:00 Intake & Output 06/06/20 06/07/20 06/07/20 18:59 06:59 18:59 Weight 72.575 kg - Exam BMI 28.3 - Constitutional General appearance: Present: average body habitus - EENT Eyes: Present: EOMI ENT: Present: hearing grossly normal - Neck Neck: Present: normal ROM - Respiratory Respiratory: bilateral: CTA - Cardiovascular Rhythm: regular Heart sounds: normal: S1, S2 - Gastrointestinal General gastrointestinal: Present: soft - Integumentary Integumentary: Present: normal turgor - Musculoskeletal Musculoskeletal: Present: gait normal - Psychiatric Psychiatric: Present: A&O x's 3, appropriate affect, intact judgment & insight - Additional findings Additional findings: breast exam: BRA: 36B inspection: bilateral grade 2 ptosis, skin changes left breast related to lumpectomy and radiation Address palpation: Right breast: Multi-positional exam fibrocystic changes no dominant masses or nodules of concern Right axilla: No adenopathy of concern Left breast: Multiple positional exam postop and radiation changes, no dominant masses or nodules of concern, no evidence of recurrent cancer Left axilla: No adenopathy of concern Assessment and Plan Assessment: Impression: 1. Patient status post stage I a left breast cancer/no evidence of recurrent disease 2. Fibrocystic breast changes 3. Arthritis 4. Patient completed radiation therapy 5. Patient did not have chemotherapy 6. patient on anestrazole 7. Bilateral mammogram on reviewed with radiology Plan: 1. Repeat bilateral mammogram in 1 year 2. Follow-up appointment here in 4 months 3. Continue anastrozole 4. Continue follow-up with medical and radiation oncology Cc: Dr. Dr. Zuñiga
== END ==
LOC: WWCWWP 09:55
PROVIDERS: ATTEND Surgery
DX: Z09 Encounter for follow-up examination after completed treatment for conditions other than malignant neoplasm (principal); Z85.3 Personal history of malignant neoplasm of breast; M19.90 Unspecified osteoarthritis, unspecified site; N60.19 Diffuse cystic mastopathy of unspecified breast; F17.210 Nicotine dependence, cigarettes, uncomplicated

== ENCOUNTER → 2020-06-07 | Outpatient (CLI) | payer MEDICARE, OTHER ==
--- NOTE | 2020-06-11 13:02 | MM ---
Reason for exam: follow-up at short interval from prior study. Last mammogram was performed 10 months ago. History: Patient is postmenopausal and has history of breast cancer at age 64. Family history of breast cancer in daughter at age 45. Radiation therapy of the left breast, November 2019. Malignant MG pre op needle loc LT of the left breast, September 27, 2019. Lumpectomy of the left breast, September 27, 2019. Taking antineoplastic for 6 months. Physical Findings: Nurse did not find any significant physical abnormalities on exam. MG 3D Diag Mammo W/Cad JENNIFER Bilateral CC and MLO view(s) were taken. Prior study comparison: August 04, 2019, mammogram. June 01, 2019, mammogram. The breast tissue is heterogeneously dense. This may lower the sensitivity of mammography. Asymmetric breast tissue greater in the left breast. No significant new findings when compared with previous films. These results were verbally communicated with the patient and result sheet given to the patient on 06/07/20. ASSESSMENT: Benign, BI-RAD 2 RECOMMENDATION: Follow-up diagnostic mammogram of both breasts in 1 year.
== END | disposition home or self-care (01) ==
LOC: RADMAMWWP 10:03
PROVIDERS: ATTEND Radiology Radiation Oncology
DX: C50.212 Malignant neoplasm of upper-inner quadrant of left female breast (principal); Z78.0 Asymptomatic menopausal state; Z98.890 Other specified postprocedural states; F17.210 Nicotine dependence, cigarettes, uncomplicated; Z85.3 Personal history of malignant neoplasm of breast
CPT/HCPCS: 77066; G0279; 77062

== ENCOUNTER → 2020-10-04 | Outpatient (CLI) | payer MEDICARE, OTHER ==
[2020-10-04 14:50] VITALS: BP 132/79; PULSE 107; RESP 16; TEMP 98.5
--- NOTE | 2020-10-04 15:08 | P.PN ---
Subjective Progress Note Date: 10/04/20 Principal diagnosis: stage IA left breast cancer Stage 1A left breast cancer [id number]+/Pr+ Her2- G1 left breast stage 1A cancer; [id number]+/IL+ Her2-G1 Tamy is a 65-year-old white female who had a first time mammogram performed at the beginning of May 2019. She was told the right side was OK however, a lesion was seen of the left breast. She then had a left breast diagnostic mammogram which revealed a 4 mm spiculated density along the superior portion of the left breast visible on slice #24 out of 29. And on the MLO slice #40 out of 65. 3-D stereotactic core biopsy is recommended. The patient had an ultrasound done on the same date and the ultrasound revealed a hypoechoic lesion at the superior 11:00 oclock portion without acoustic enhancement the findings were not consistent with a simple cyst. The lesion was felt to be too small to characterize on ultrasound. The patient does not feel any masses or nodules in her breast. She is not complaining of any nipple discharge or skin changes. She has not had any recent history of trauma or infection in the breast. She does not take hormones. She drinks coffee 2 pots/day. She does not eat chocolate. She smokes 1 pack/4 days. Tamy underwent a stero biopsy 3D at [facility] on 08-04-19. Pathology was a G1 ER+/IL+ invasive ductal cancer. Her 2- She underwent a lumpectomy/SNB on 09-26-20; She completed radiation therapy on 11-18-19. She is currently on an AI. She had a bilateral mammogram on 06-07-20 which was stabel follow up in [address] Shell 06-15-20 reviewed. Family history: Negative Hormonal history: Menarche: 12 , breast fed: none, age at first : 16 menopause: hysterectomy at 45, she believes took ovaries, done at the time of a bladder suspension BCP: none hormones: none Surgical history: Total abdominal hysterectomy 3 C-sections appy lumpectomy/SNB Medical History: arthritis Social History: smoke: 1 pack/ 4 days for 45 years alcohol: none drugs: none - Constitutional Constitutional: Denies chills, Denies fever - EENT Eyes: bilateral blurred vision (beginning of macular degeneration) Ears: deny: decreased hearing, tinnitus Ears, nose, mouth and throat: Denies headache, Denies sore throat - Breasts Breasts: bilateral: as per HPI - Cardiovascular Cardiovascular: Denies chest pain, Denies shortness of breath - Respiratory Comment: COPD Respiratory: Reports cough - Gastrointestinal Comment: PUD Gastrointestinal: Denies abdominal pain, Denies diarrhea, Denies nausea, Denies vomiting - Genitourinary (Female) Genitourinary: Denies dysuria, Denies hematuria - Menstruation Menstruation: Reports post hysterectomy - Musculoskeletal Comment: back pain, arthritis - Integumentary Integumentary: Reports pruritus, Denies rash - Neurological Neurological: Denies numbness, Denies weakness - Psychiatric Psychiatric: Reports depression, Denies anxiety - Endocrine Comment: gained weight with pandemic Endocrine: Reports weight change, Denies fatigue - Hematologic/Lymphatic Comment: none - Allergic/Immunologic Allergic/Immunologic: Reports as per HPI Objective - Vital Signs Vital signs: Vital Signs Temp 98.5 F 10/04/20 14:40 Pulse 107 H 10/04/20 14:40 Resp 16 10/04/20 14:40 BP 132/79 10/04/20 14:40 Pulse Ox 92 L 10/04/20 14:40 Intake & Output 10/03/20 10/04/20 10/04/20 18:59 06:59 18:59 Weight 72.575 kg - Constitutional General appearance: Present: average body habitus - EENT Eyes: Present: EOMI ENT: Present: hearing grossly normal - Neck Neck: Present: normal ROM - Respiratory Respiratory: bilateral: CTA - Cardiovascular Rhythm: regular Heart sounds: normal: S1, S2 - Gastrointestinal General gastrointestinal: Present: soft - Integumentary Integumentary: Present: normal turgor - Musculoskeletal Musculoskeletal: Present: gait normal - Psychiatric Psychiatric: Present: A&O x's 3, appropriate affect, intact judgment & insight - Additional findings Additional findings: Breast exam: BRA: 36B inspection: Well-healed scar left breast from prior surgery Palpation: Right breast: Multi-positional exam fibrocystic changes no dominant masses or nodules of concern Right axilla: No adenopathy of concern Left breast: Multi-positional exam fibrocystic changes, no dominant masses or nodules of concern Left axilla: No adenopathy of concern Assessment and Plan Assessment: Impression: 1. Patient status post left breast lumpectomy and sentinel node biopsy for stage I a left breast invasive ductal carcinoma/no evidence of recurrence 2. Arthritis 3. COPD 4. smoker Plan: 1. Repeat bilateral mammogram in May 2021 with physician exam at that time 2. Follow-up in 6 months for past examination 3. Continue aromatase inhibitor 4. Patient encouraged to stop smoking CC: Dr. Trotter
== END ==
LOC: WWCWWP 13:57
PROVIDERS: ATTEND Surgery
DX: Z08 Encounter for follow-up examination after completed treatment for malignant neoplasm (principal); M19.90 Unspecified osteoarthritis, unspecified site; J44.9 Chronic obstructive pulmonary disease, unspecified; F17.210 Nicotine dependence, cigarettes, uncomplicated; Z85.3 Personal history of malignant neoplasm of breast; Z98.890 Other specified postprocedural states

== ENCOUNTER → 2021-06-10 | Outpatient (CLI) | payer MEDICARE, OTHER ==
--- NOTE | 2021-06-12 12:15 | MM ---
Reason for exam: additional evaluation requested from prior study. Last mammogram was performed 1 year ago. History: Patient is postmenopausal and has history of breast cancer at age 64. Family history of breast cancer in daughter at age 45. Radiation therapy of the left breast, November 2019. Malignant MG pre op needle loc LT of the left breast, September 27, 2019. Lumpectomy of the left breast, September 27, 2019. Took hormonal contraceptives for 6 months. Taking antineoplastic for 2 years. Physical Findings: A clinical breast exam by your physician is recommended on an annual basis and results should be correlated with mammographic findings. MG 3D Diag Mammo W/Cad JENNIFER Bilateral CC and MLO view(s) were taken. XCCL view(s) were taken of the left breast. Prior study comparison: June 07, 2020, bilateral MG 3d diag mammo w/cad JENNIFER. August 04, 2019, mammogram. The breast tissue is heterogeneously dense. This may lower the sensitivity of mammography. Post surgical and post therapy changes left breast. Ongoing short follow up to assess any evolving post therapy change. No significant changes when compared with prior studies. ASSESSMENT: Probably benign, BI-RAD 3 RECOMMENDATION: Follow-up diagnostic mammogram of the left breast in 6 months.
== END | disposition home or self-care (01) ==
LOC: RADMAMWWP 10:48
PROVIDERS: ATTEND Radiology Radiation Oncology
DX: R92.8 Other abnormal and inconclusive findings on diagnostic imaging of breast (principal); Z78.0 Asymptomatic menopausal state; Z85.3 Personal history of malignant neoplasm of breast; Z80.3 Family history of malignant neoplasm of breast; Z92.3 Personal history of irradiation
CPT/HCPCS: 77066; G0279; 77062

== ENCOUNTER → 2021-07-11 | Outpatient (CLI) | payer MEDICARE, OTHER ==
[2021-07-11 13:45] VITALS: BP 135/77; PULSE 107; RESP 18; TEMP 98.2
--- NOTE | 2021-07-11 14:12 | P.PN ---
Subjective Progress Note Date: 07/11/21 Principal diagnosis: stage IA left breast cancer [id number]+Pr+Her2-G1 Stage 1A left breast cancer [id number]+/Pr+ Her2- G1 Tamy is a 65-year-old white female who had a first time mammogram performed at the beginning of May 2019. She was told the right side was OK however, a lesion was seen of the left breast. She then had a left breast diagnostic mammogram which revealed a 4 mm spiculated density along the superior portion of the left breast visible on slice #24 out of 29. And on the MLO slice #40 out of 65. 3-D stereotactic core biopsy was recommended. The patient had an ultrasound done on the same date and the ultrasound revealed a hypoechoic lesion at the superior 11:00 oclock portion without acoustic enhancement the findings were not consistent with a simple cyst. The lesion was felt to be too small to characterize on ultrasound. The patient did not feel any masses or nodules in her breast. She was not complaining of any nipple discharge or skin changes. She had not had any recent history of trauma or infection in the breast. She does not take hormones. She drinks coffee 2 pots/day. She does not eat chocolate. She smokes 1 pack/4 days. Tamy underwent a stero biopsy 3D at [facility] on 08-04-19. Pathology was a G1 ER+/DE+ invasive ductal cancer. Her 2- She underwent a lumpectomy/SNB on 09-26-20; She completed radiation therapy on 11-18-19. She is currently on an AI. She had a bilateral mammogram on 06-10-21 for which they recommended a repeat left breast mammogram in 6 months, post radiation and surgical changes are noted in the wish to follow this closely Note from Dr. Shell 06-12-21 reviewed The patient is on anestrazole The patient is not complaining of any new lumps masses or nodules of concern in either breast. She is not complaining of any nipple discharge or skin changes. Family history: Negative Hormonal history: Menarche: 12 , breast fed: none, age at first : 16 menopause: hysterectomy at 45, she believes took ovaries, done at the time of a bladder suspension BCP: none hormones: none Surgical history: Total abdominal hysterectomy 3 C-sections appy lumpectomy/SNB cataract surgery Medical History: arthritis patient is on prolia shot for osterpenia Social History: smoke: 1 pack/ 4 days for 45 years alcohol: none drugs: none - Constitutional Constitutional: Denies chills, Denies fever - EENT Eyes: bilateral blurred vision (beginning of macular degeneration) Ears: deny: decreased hearing, tinnitus Ears, nose, mouth and throat: Denies headache, Denies sore throat - Breasts Breasts: bilateral: as per HPI - Cardiovascular Cardiovascular: Denies chest pain, Denies shortness of breath - Respiratory Comment: COPD Respiratory: Reports cough - Gastrointestinal Comment: PUD Gastrointestinal: Denies abdominal pain, Denies diarrhea, Denies nausea, Denies vomiting - Genitourinary (Female) Genitourinary: Denies dysuria, Denies hematuria - Menstruation Menstruation: Reports post hysterectomy - Musculoskeletal Comment: back pain, arthritis - Integumentary Integumentary: Reports pruritus, Denies rash - Neurological Neurological: Denies numbness, Denies weakness - Psychiatric Psychiatric: Reports depression, Denies anxiety - Endocrine Comment: gained weight with pandemic Endocrine: Reports weight change, Denies fatigue - Hematologic/Lymphatic Comment: none - Allergic/Immunologic Allergic/Immunologic: Reports as per HPI Objective - Vital Signs Vital signs: Vital Signs Temp 98.2 F 07/11/21 13:42 Pulse 107 H 07/11/21 13:42 Resp 18 07/11/21 13:42 BP 135/77 07/11/21 13:42 Pulse Ox 97 07/11/21 13:42 Intake & Output 07/10/21 07/11/21 07/11/21 18:59 06:59 18:59 Weight 74.843 kg - Exam BMI 29.2 - Constitutional General appearance: Present: cooperative - EENT Eyes: Present: EOMI ENT: Present: hearing grossly normal - Neck Neck: Present: normal ROM - Respiratory Respiratory: bilateral: CTA - Cardiovascular Rhythm: regular Heart sounds: normal: S1, S2 - Gastrointestinal General gastrointestinal: Present: soft - Integumentary Integumentary: Present: normal turgor - Musculoskeletal Musculoskeletal: Present: gait normal - Psychiatric Psychiatric: Present: A&O x's 3, appropriate affect, intact judgment & insight - Additional findings Additional findings: Breast Exam: BRA: 34B inspection: Nipple grade 2/3 ptosis, left nipple grade 2 ptosis well-healed scar from prior surgery Palpation: Right breast: Multiple positional exam fibrocystic changes no dominant masses or nodules of concern Right axilla: No adenopathy of concern Left breast: Multiple positional exam fibrocystic changes no dominant masses or nodules of concern Left axilla: No adenopathy of concern Assessment and Plan Assessment: Impression: Patient status post left breast lumpectomy for stage IA invasive ductal carcinoma no evidence of recurrence Patient's most recent mammogram was [address] recommend repeat left left breast mammogram in 6 months Plan: Continue anastrozole Left breast mammogram in 6 months Physician exam in 6 months after mammogram CC: Dr. Crouch
== END ==
LOC: WWCWWP 13:34
PROVIDERS: ATTEND Surgery
DX: Z08 Encounter for follow-up examination after completed treatment for malignant neoplasm (principal); Z85.3 Personal history of malignant neoplasm of breast; M18.0 Bilateral primary osteoarthritis of first carpometacarpal joints; M19.90 Unspecified osteoarthritis, unspecified site; Z79.811 Long term (current) use of aromatase inhibitors; Z98.890 Other specified postprocedural states; F17.200 Nicotine dependence, unspecified, uncomplicated

== ENCOUNTER → 2021-12-12 | Outpatient (CLI) | payer MEDICARE, OTHER ==
--- NOTE | 2021-12-12 13:21 | MM ---
Reason for Exam: Follow-up at short interval from prior study. Last screening mammogram was performed 6 month(s) ago. Patient History: Menarche at age 12. First Full-Term at age 16. Left ovary removed at age 45. Right ovary removed at age 45. Hysterectomy at age 45. Postmenopausal. Breast cancer, left, age 64. Hormonal Contraceptives for 6 months. 09/27/2019, Lumpectomy on the Left side. 09/27/2019, Malignant Core Biopsy on the left side. 11/2019, Radiation Therapy on the left side. Daughter had breast cancer, age 45. Prior Study Comparison: 08/04/2019 Screening Mammogram, Unknown. 06/07/2020 Bilateral Diagnostic Mammogram, [facility]. 06/10/2021 Bilateral Diagnostic Mammogram, [facility]. Tissue Density: Left: The breast tissue is heterogeneously dense. This may lower the sensitivity of mammography. Findings: Analyzed By CAD. Postsurgical and posttreatment changes left breast. Surgical clips are present as well as large circumscribed region of fat density, likely underlying oil cyst. There are newly developing calcifications at the surgical site, suspect developing oil cyst and fat necrosis calcifications. Ongoing short interval follow-up recommended to assess for evolving posttreatment change.. Overall Assessment: Probably benign, BI-RAD 3 Management: Diagnostic Mammogram of both breasts in 6 months. 1. Ongoing short interval follow-up left breast to assess for evolving posttreatment change, suspected developing fat necrosis calcifications. Annual exam right breast. 2. Patient should continue monthly self breast exams. A clinical breast exam by your physician is recommended on an annual basis. 3. This exam should not preclude additional follow-up of suspicious palpable abnormalities. Electronically signed and approved by: Carolyn Banerjee M.D. Radiologist
== END | disposition home or self-care (01) ==
LOC: RADMAMWWP 11:05
PROVIDERS: ATTEND Surgery
DX: Z85.3 Personal history of malignant neoplasm of breast (principal); Z78.0 Asymptomatic menopausal state; Z80.3 Family history of malignant neoplasm of breast; Z98.890 Other specified postprocedural states
CPT/HCPCS: 77065; G0279; 77061

== ENCOUNTER → 2021-12-19 | Outpatient (CLI) | payer MEDICARE, OTHER ==
[2021-12-19 14:53] VITALS: BP 139/82; PULSE 103; RESP 17; TEMP 98.1
--- NOTE | 2021-12-19 14:58 | P.PN ---
Subjective Progress Note Date: 12/19/21 Principal diagnosis: stage 1 left breast cancer dx. 2020 Stage 1A left breast cancer [id number]+/Pr+ Her2- G1 Tamy is a 66-year-old white female diagnosed with a stage IA left breast cancer T1 N0 M0 ER positive [place] [address]. She underwent a lumpectomy/sentinel node biopsy on 7720, she completed radiation therapy on 820 820. She is currently on an aromatase inhibitor. She did not have any chemotherapy. [place] [address] for which they recommended a repeat left breast mammogram in 6 months. This was most recently done a 920 222 and was felt to be most likely benign BIRADS 3, bilateral mammogram in 6 months re commended. [place] [address]. This was probably benign BIRADS 3. Recommendation was for bilateral mammogram in 6 months. She is not complaining of any new lumps masses or nodules of concern in either breast. She complains of discomfort in the inferior aspect of her right breast it is intermittent and not associated with any activity. Caffeine: 3-4 cups/day of [employer] light nicotine: stopped 4 weeks ago; used to smoke 1/4/PPD chocolate; none hormones: none Family history: Negative Hormonal history: Menarche: 12 , breast fed: none, age at first : 16 menopause: hysterectomy at 45, she believes took ovaries, done at the time of a bladder suspension BCP: none hormones: none Surgical history: Total abdominal hysterectomy 3 C-sections appy lumpectomy/SNB cataract surgery Medical History: arthritis patient is on prolia shot for osterpenia Social History: smoke: 1 pack/ 4 days for 45 years alcohol: none drugs: none - Constitutional Constitutional: Denies chills, Denies fever - EENT Eyes: bilateral blurred vision (beginning of macular degeneration) Ears: deny: decreased hearing, tinnitus Ears, nose, mouth and throat: Denies headache, Denies sore throat - Breasts Breasts: bilateral: as per HPI - Cardiovascular Cardiovascular: Denies chest pain, Denies shortness of breath - Respiratory Comment: COPD Respiratory: Reports cough - Gastrointestinal Comment: PUD Gastrointestinal: Denies abdominal pain, Denies diarrhea, Denies nausea, Denies vomiting - Genitourinary (Female) Genitourinary: Denies dysuria, Denies hematuria - Menstruation Menstruation: Reports post hysterectomy - Musculoskeletal Comment: back pain, arthritis - Integumentary Integumentary: Reports pruritus, Denies rash - Neurological Neurological: Denies numbness, Denies weakness - Psychiatric Psychiatric: Reports depression, Denies anxiety - Endocrine Comment: gained weight with pandemic Endocrine: Reports weight change, Denies fatigue - Hematologic/Lymphatic Comment: none - Allergic/Immunologic Allergic/Immunologic: Reports as per HPI Objective - Constitutional General appearance: Present: cooperative - EENT Eyes: Present: EOMI ENT: Present: hearing grossly normal - Neck Neck: Present: normal ROM - Respiratory Respiratory: bilateral: CTA - Cardiovascular Rhythm: regular Heart sounds: normal: S1, S2 - Integumentary Integumentary: Present: normal turgor - Musculoskeletal Musculoskeletal: Present: gait normal - Psychiatric Psychiatric: Present: A&O x's 3, appropriate affect, intact judgment & insight - Additional findings Additional findings: Breast Exam: BRA: 36B Inspection: Bilateral grade 2 ptosis, well-healed scar left breast from prior surgery Palpation: Right breast: Multi-positional exam fibrocystic changes no dominant masses or nodules of concern Right axilla: No adenopathy of concern Left breast: Well-healed scars no dominant asses her nodules of concern on multi-positional exam Left axilla: No adenopathy of concern Assessment and Plan Assessment: Impression: No evidence of recurrent left breast stage I invasive ductal carcinoma Plan: Repeat bilateral mammogram in 6 months with physician exam at that time Continue anastrozole Continue follow-up with medical oncology Continue follow-up radiation oncology CC: Dr. Crouch
== END | disposition home or self-care (01) ==
LOC: WWCWWP 14:40
PROVIDERS: ATTEND Surgery
DX: Z53.9 Procedure and treatment not carried out, unspecified reason (principal)

== ENCOUNTER → 2022-06-12 | Outpatient (CLI) | payer MEDICARE, OTHER ==
--- NOTE | 2022-06-12 11:15 | MM ---
Reason for Exam: Hx of breast cancer, conservation therapy. Last screening mammogram was performed 12 month(s) ago. Patient History: Menarche at age 12. First Full-Term at age 16. Left ovary removed at age 45. Right ovary removed at age 45. Hysterectomy at age 45. Postmenopausal. Breast cancer, left, age 64. Hormonal Contraceptives for 6 months. 09/27/2019, Lumpectomy on the Left side. 09/27/2019, Malignant Core Biopsy on the left side. 11/2019, Radiation Therapy on the left side. Niece had breast cancer, age 49. Daughter had breast cancer, age 45. Tissue Density: There are scattered fibroglandular densities. Findings: Analyzed By CAD. Postsurgical and posttreatment changes left breast. There is a region of progressive calcification 12:00 central left breast along the anterior margin of the surgical clips, likely progressive fat necrosis calcifications. This can be confirmed at a 6 month follow-up. Otherwise, no significant change. Overall Assessment: Probably benign, BI-RAD 3 Management: Diagnostic Mammogram of the left breast in 6 months. To confirm progressive fat necrosis calcifications. Patient should continue monthly self breast exams. Results were given to the patient verbally at the time of exam. Electronically signed and approved by: Carolyn Banerjee M.D. Radiologist
== END | disposition home or self-care (01) ==
LOC: RADMAMWWP 10:48
PROVIDERS: ATTEND Radiology Radiation Oncology
DX: Z08 Encounter for follow-up examination after completed treatment for malignant neoplasm (principal); F17.210 Nicotine dependence, cigarettes, uncomplicated; Z85.3 Personal history of malignant neoplasm of breast; Z98.890 Other specified postprocedural states; Z92.3 Personal history of irradiation; Z78.0 Asymptomatic menopausal state; Z80.3 Family history of malignant neoplasm of breast
CPT/HCPCS: 77066; G0279; 77062

== ENCOUNTER → 2022-06-12 | Outpatient (CLI) | payer MEDICARE, OTHER ==
--- NOTE | 2022-06-12 14:20 | BD ---
EXAMINATION TYPE: Axial Bone Density DATE OF EXAM: 06/12/2022 CLINICAL HISTORY: 67 years old Female. ICD-10 CODE: Z79.890 POST MENOPAUSAL WITH HRT Height: 60.8 Weight: 171 FRAX RISK QUESTIONS: Glucocorticoids (More than 3mos): yes, not recently (Ex: prednisone, prednisolone, methylprednisolone, dexamethasone, and hydrocortisone). History of Fracture in Adulthood: yes Current Tobacco Use: yes RISK FACTORS HISTORY OF: possibly recent lt hand fx...fall...hand discolored and fingers bent? Postmenopausal woman: yes, at age 46 yrs old total hyst. Take estrogen and/or progesterone medications: yes, for about 1 yr Frequent falls: yes Hyperparathyroidism: no Adrenal Insufficiency: no MEDICATIONS: Prednisone or other steroids: yes, for asthma, for many yrs Thyroid Medications: yes, synthroid product for about 7 yrs Osteoporosis Medications: yes, Prolia for about 2+ yrs Additional Medications: ativan, hx of radiation, lumpectomy lt breast cancer, Omeprazole, statin for cholesterol, vit d, calcium, anastrozole, Additional History: hx of breast cancer, left breast, lumpectomy with radiation, reflux, cholesterol, asthma, thyroid, EXAM MEASUREMENTS: Bone mineral densitometry was performed using the [employer] System. Bone mineral density as measured about the Lumbar spine is: ----- L1-L4(G/cm2): 0.975 T Score Values are as follows: ----- L1: -2.8 ----- L2: -2.2 ----- L3: -1.4 ----- L4: -0.7 ----- L1-L4: -1.7 Z Score Values are as follows: ----- L1: -1.6 ----- L2: -1.0 ----- L3: -0.2 ----- L4: 0.5 ----- L1-L4: -0.5 Bone mineral density has: Decreased -3.0% since study of: 02.13.2020 Bone mineral density about the R hip (g/cm2): 0.829 Bone mineral density about the L hip (g/cm2): 0.860 T Score values are as follows: -----R Neck: -2.3 -----L Neck: -2.3 -----R Total: -1.4 -----L Total: -1.2 Z Score values are as follows: -----R Neck: -1.0 -----L Neck: -1.0 -----R Total: -0.4 -----L Total: -0.1 Bone mineral density has: Increased 4.8% since study of: 02.13.2020 FRAX%s: The graph provided illustrates a 21.3% chance for a major osteoporotic fx and a 6.8% chance f or the hips probability for fx in 10 years time. IMPRESSION: Osteopenia (T Score between -2.5 and -1). There is slightly increased risk of fracture and the patient may be considered for treatment. Re-Screen 2-5 years. NOTE: T-SCORE=SD OF THE YOUNG ADULT MEAN.
== END | disposition home or self-care (01) ==
LOC: RADBDWWP 10:46
PROVIDERS: ATTEND Internal Medicine Hematology & Oncology
DX: C50.412 Malignant neoplasm of upper-outer quadrant of left female breast (principal); M81.0 Age-related osteoporosis without current pathological fracture; M85.88 Other specified disorders of bone density and structure, other site; Z79.890 Hormone replacement therapy
CPT/HCPCS: 77080

== ENCOUNTER → 2022-06-12 | Outpatient (CLI) | payer MEDICARE, OTHER ==
[2022-06-12 12:29] VITALS: BP 149/82; PULSE 101; RESP 18; TEMP 98.1
--- NOTE | 2022-06-12 12:44 | P.PN ---
Subjective Progress Note Date: 06/12/22 Principal diagnosis: stage IA left breast invasive ductal cancer Stage 1A left breast cancer [id number]+/Pr+ Her2- 2019 Tamy is a 67-year-old white female diagnosed with a stage IA left breast cancer T1 N0 M0 ER positive [place] [address]. She underwent a lumpectomy/sentinel node biopsy on 77, [place] [address]. She is currently on an aromatase inhibitor. She did not have any chemotherapy. Bilateral mammogram was done on 06-12-22. Was a BIRADS 3 and 6 month follow-up of a left breast mammogram was recommended. She is not complaining of any new lumps masses or nodules of concern in either breast. She complains of discomfort in the inferior aspect of her right breast it is intermittent and not associated with any activity. She fell approximately one month ago and since that time her left fifth digit is contracted. Additionally tips of her toes are purple bilaterally and they are cold is worse on the left than on the right. Note radiation oncology 323-22 reviewed. Caffeine: 3-4 cups/day of [employer] light nicotine: stopped 4 weeks ago; used to smoke 1/4/PPD chocolate; none hormones: none Family history: Negative Hormonal history: Menarche: 12 , breast fed: none, age at first : 16 menopause: hysterectomy at 45, she believes took ovaries, done at the time of a bladder suspension BCP: none hormones: none Surgical history: Total abdominal hysterectomy 3 C-sections appy lumpectomy/SNB cataract surgery Medical History: arthritis patient is on prolia shot for osterpenia Social History: smoke: 1 pack/ 4 days for 45 years alcohol: none drugs: none - Constitutional Constitutional: Denies chills, Denies fever - EENT Eyes: bilateral blurred vision (beginning of macular degeneration) Ears: deny: decreased hearing, tinnitus Ears, nose, mouth and throat: Denies headache, Denies sore throat - Breasts Breasts: bilateral: as per HPI - Cardiovascular Cardiovascular: Denies chest pain, Denies shortness of breath - Respiratory Comment: COPD Respiratory: Reports cough - Gastrointestinal Comment: PUD Gastrointestinal: Denies abdominal pain, Denies diarrhea, Denies nausea, Denies vomiting - Genitourinary (Female) Genitourinary: Denies dysuria, Denies hematuria - Menstruation Menstruation: Reports post hysterectomy - Musculoskeletal Comment: back pain, arthritis - Integumentary Integumentary: Reports pruritus, Denies rash - Neurological Neurological: Denies numbness, Denies weakness - Psychiatric Psychiatric: Reports depression, Denies anxiety - Endocrine Comment: gained weight with pandemic Endocrine: Reports weight change, Denies fatigue - Hematologic/Lymphatic Comment: none - Allergic/Immunologic Allergic/Immunologic: Reports as per HPI Objective - Vital Signs Vital signs: Vital Signs Temp 98.1 F 06/12/22 12:27 Pulse 101 H 06/12/22 12:27 Resp 18 06/12/22 12:27 BP 149/82 06/12/22 12:27 Pulse Ox 97 06/12/22 12:27 FiO2 Intake & Output 06/11/22 06/12/22 06/12/22 18:59 06:59 18:59 Weight 77.564 kg - Constitutional General appearance: Present: cooperative - EENT Eyes: Present: EOMI ENT: Present: hearing grossly normal - Neck Neck: Present: normal ROM - Respiratory Respiratory: bilateral: CTA - Cardiovascular Rhythm: regular Heart sounds: normal: S1, S2 - Gastrointestinal General gastrointestinal: Present: soft - Integumentary Integumentary Comment(s): Bilateral distal toes purple and cold, patient does not complain of pain Integumentary: Present: normal turgor - Musculoskeletal Musculoskeletal: Present: gait normal - Psychiatric Psychiatric: Present: A&O x's 3, appropriate affect, intact judgment & insight - Additional findings Additional findings: Breast Exam: BRA: 36B Inspection: Bilateral grade 2 ptosis, well-healed scar left breast from prior surgery Palpation: Right breast: Multi-positional exam fibrocystic changes no dominant masses or nodules of concern Right axilla: No adenopathy of concern Left breast: Well-healed scars no dominant asses her nodules of concern on multi-positional exam Left axilla: No adenopathy of concern Assessment and Plan Assessment: Impression: No evidence of recurrent left breast cancer Bilateral mammogram 320 320 3 repeat left breast mammogram in 6 months Fibrocystic breast changes Continue aromatase inhibitor Purple toes to follow with primary care doctor Contracture of left fifth digit to follow with primary care doctor Plan: Follow-up with primary care doctor Left breast mammogram 6 months with appointment at that time Follow-up or sooner any questions or concerns Continue to follow up radiation oncology and medical oncology CC: Prem
== END ==
LOC: WWCWWP 10:50
PROVIDERS: ATTEND Surgery
DX: N60.12 Diffuse cystic mastopathy of left breast (principal); M24.542 Contracture, left hand; Z79.811 Long term (current) use of aromatase inhibitors; M19.90 Unspecified osteoarthritis, unspecified site; F17.200 Nicotine dependence, unspecified, uncomplicated

== ENCOUNTER → 2022-09-11 | Outpatient (CLI) | payer MEDICARE, OTHER ==
--- NOTE | 2022-09-11 09:55 | P.PN ---
Subjective Progress Note Date: 09/11/22 Principal diagnosis: possible new lump left breast Stage 1A left breast cancer [id number]+/Pr+ Her2- , 2019 Tamy is a 67-year-old white female diagnosed with a stage IA left breast cancer T1 N0 M0 ER + [place] + [place]-2[place] [address]. She underwent a lumpectomy/sentinel node biopsy on 77, [place] [address]. She is currently on an aromatase inhibitor. She did not have any chemotherapy. Bilateral mammogram was done on 06-12-22. Was a BIRADS 3 and 6 month follow-up of a left breast mammogram was recommended. She is concerned that she feels a lump in the left breast this just started approximately 1 week ago. She did not have any trauma to her breast. She states it feels aggravating but not painful. She is not complaining of any new lumps past or nodules in the right breast. She fell approximately 4 months ago and since that time her left fifth digit is contracted. Additionally tips of her toes are purple bilaterally and they are cold is worse on the left than on the right. Note radiation oncology 323-22 reviewed. Caffeine: 3-4 cups/day of [employer] light nicotine: stopped 4 weeks ago; used to smoke 1/4/PPD chocolate; none hormones: none Family history: Negative Hormonal history: Menarche: 12 , breast fed: none, age at first : 16 menopause: hysterectomy at 45, she believes took ovaries, done at the time of a bladder suspension BCP: none hormones: none Surgical history: Total abdominal hysterectomy 3 C-sections appy lumpectomy/SNB cataract surgery Medical History: arthritis patient is on prolia shot for osterpenia Social History: smoke: 1 pack/ 4 days for 45 years alcohol: none drugs: none - Constitutional Constitutional: Denies chills, Denies fever - EENT Eyes: bilateral blurred vision (beginning of macular degeneration) Ears: deny: decreased hearing, tinnitus Ears, nose, mouth and throat: Denies headache, Denies sore throat - Breasts Breasts: bilateral: as per HPI - Cardiovascular Cardiovascular: Denies chest pain, Denies shortness of breath - Respiratory Comment: COPD Respiratory: Reports cough - Gastrointestinal Comment: PUD Gastrointestinal: Denies abdominal pain, Denies diarrhea, Denies nausea, Denies vomiting - Genitourinary (Female) Genitourinary: Denies dysuria, Denies hematuria - Menstruation Menstruation: Reports post hysterectomy - Musculoskeletal Comment: back pain, arthritis - Integumentary Integumentary: Reports pruritus, Denies rash - Neurological Neurological: Denies numbness, Denies weakness - Psychiatric Psychiatric: Reports depression, Denies anxiety - Endocrine Comment: gained weight with pandemic Endocrine: Reports weight change, Denies fatigue - Hematologic/Lymphatic Comment: none - Allergic/Immunologic Allergic/Immunologic: Reports as per HPI Objective - Constitutional General appearance: Present: cooperative - EENT Eyes: Present: EOMI ENT: Present: hearing grossly normal - Neck Neck: Present: normal ROM - Respiratory Respiratory: bilateral: CTA - Cardiovascular Rhythm: regular Heart sounds: normal: S1, S2 - Gastrointestinal General gastrointestinal: Present: soft - Integumentary Integumentary: Present: normal turgor - Musculoskeletal Musculoskeletal: Present: gait normal - Psychiatric Psychiatric: Present: A&O x's 3, appropriate affect, intact judgment & insight - Additional findings Additional findings: Breast Exam: BRA: 36B Inspection: Bilateral grade 2 ptosis, well-healed scar left breast from prior surgery Palpation: Right breast: Multi-positional exam fibrocystic changes no dominant masses or nodules of concern Right axilla: No adenopathy of concern Left breast: Well-healed scars, nodularity in the medial aspect of the breast, no other dominant masses or nodules of concern Left axilla: No adenopathy of concern Assessment and Plan Assessment: Impression: Medial aspect left breast Bilateral mammogram [id number] repeat left breast mammogram in 6 months Fibrocystic breast changes Continue aromatase inhibitor Purple toes to follow with primary care doctor Contracture of left fifth digit to follow with primary care doctor Plan: Follow-up with primary care doctor Left breast mammogram 3months with appointment at that time Left breast ultrasound follow-up after ultrasound is done Continue anastrozole Continue to follow up radiation oncology and medical oncology CC: Prem
[2022-09-11 10:24] VITALS: BP 158/88; PULSE 100; RESP 17; TEMP 97.9
== END ==
LOC: WWCWWP 09:35
PROVIDERS: ATTEND Surgery
DX: C50.912 Malignant neoplasm of unspecified site of left female breast (principal); N60.11 Diffuse cystic mastopathy of right breast; F17.200 Nicotine dependence, unspecified, uncomplicated; M19.90 Unspecified osteoarthritis, unspecified site; M85.80 Other specified disorders of bone density and structure, unspecified site; Z85.3 Personal history of malignant neoplasm of breast; Z92.3 Personal history of irradiation; Z17.0 Estrogen receptor positive status [ER+]

== ENCOUNTER → 2022-09-24 | Outpatient (CLI) | payer MEDICARE, OTHER ==
--- NOTE | 2022-09-24 15:09 | USB ---
Reason for Exam: Clinical finding. Patient History: Menarche at age 12. First Full-Term at age 16. Left ovary removed at age 45. Right ovary removed at age 45. Hysterectomy at age 45. Postmenopausal. Breast cancer, left, age 64. Hormonal Contraceptives for 6 months. 09/27/2019, Lumpectomy on the Left side. 09/27/2019, Malignant Core Biopsy on the left side. 11/2019, Radiation Therapy on the left side. Niece had breast cancer, age 49. Daughter had breast cancer, age 45. Technique: Method: Targeted. Prior Study Comparison: 06/10/2021 Bilateral Diagnostic Mammogram, [facility]. 12/12/2021 Left MG 3D diag mammo w/cad LT, [facility]. 06/12/2022 Bilateral MG 3D diag mammo w/cad JENNIFER, [facility]. Findings: The medial section of the breast of the left breast, the axilla of the left breast and the retroareolar of the left breast were scanned. Predominantly solid mass left 11:00 position 4 cm from the nipple measuring 3.5 x 2.2 x 1.5 cm. Tissue diagnosis is recommended.. Overall Assessment: Suspicious, BI-RAD 4 Management: Ultrasound Core Biopsy of the left breast. A clinical breast exam by your physician is recommended on an annual basis and results should be correlated with mammographic findings. This exam should not preclude additional follow-up of suspicious palpable abnormalities. Results were given to the patient verbally at the time of exam. Electronically signed and approved by: Hollis Newton M.D. Radiologis
== END | disposition home or self-care (01) ==
LOC: RADUSWWP 13:52
PROVIDERS: ATTEND Surgery
DX: N63.20 Unspecified lump in the left breast, unspecified quadrant (principal); Z78.0 Asymptomatic menopausal state; Z80.3 Family history of malignant neoplasm of breast

== ENCOUNTER → 2022-10-01 | Day surgery (SDC) | payer MEDICARE, OTHER ==
--- NOTE | 2022-10-01 12:30 | MM ---
Reason for Exam: Post Procedure Mammogram. Last screening mammogram was performed 4 month(s) ago. Patient History: Menarche at age 12. First Full-Term at age 16. Left ovary removed at age 45. Right ovary removed at age 45. Hysterectomy at age 45. Postmenopausal. Breast cancer, left, age 64. Hormonal Contraceptives for 6 months. 09/27/2019, Lumpectomy on the Left side. 09/27/2019, Malignant Core Biopsy on the left side. 11/2019, Radiation Therapy on the left side. Niece had breast cancer, age 49. Daughter had breast cancer, age 45. Prior Study Comparison: 06/01/2019 Screening Mammogram, Unknown. 08/04/2019 Screening Mammogram, Unknown. 06/07/2020 Bilateral Diagnostic Mammogram, [facility]. 06/10/2021 Bilateral Diagnostic Mammogram, [facility]. 12/12/2021 Left MG 3D diag mammo w/cad LT, [facility]. 06/12/2022 Bilateral MG 3D diag mammo w/cad JENNIFER, [facility]. 09/24/2022 Left US breast limited LT, [facility]. Tissue Density: Left: There are scattered fibroglandular densities. Overall Assessment: Post procedure mammogram for marker placement Management: Post Mammogram for Ramu Placement Electronically signed and approved by: Omar Wang DO
--- NOTE | 2022-10-06 08:16 | USB ---
Prior Study Comparison: 06/10/2021 Bilateral Diagnostic Mammogram, [facility]. 12/12/2021 Left MG 3D diag mammo w/cad LT, [facility]. 06/12/2022 Bilateral MG 3D diag mammo w/cad JENNIFER, [facility]. 09/24/2022 Left US breast limited LT, [facility]. Pathology Description: Location: 11 o'clock. Marker Left Behind. Needle Type: Bard 14g x 10cm Cores: 5 Skin Nicks: 1 Gauge: 14 The procedure of ultrasound guided core biopsy was explained to the patient. Benefits, alternatives, and risks were discussed. An informed consent was then obtained. A time out was performed. The patient was placed in supine positioning for imaging and for the procedure. The overlying skin was prepped and draped in usual sterile fashion. 8 ml 1% lidocaine was used as anesthetic into the skin and subcutaneous tissue up to area of concern in the left o'clock 4 cm from the nipple. Under ultrasound guidance, a 18-gauge biopsy gun device was used to obtain 2 core samples. During the procedure evaluation of the 2 core samples showed some irregular with the tissue. A 14-gauge gun was then selected. 2 additional biopsies were obtained. At that time is realized that this appeared to be complex fluid collection and aspiration using 14-gauge cannula was performed. Following this, a HydroMARK biopsy clip was left in the lesion. A post procedure mammogram was performed, clip seen and correlates with the mammographic finding. The patient tolerated the procedure well without any immediate complication. The patient was discharged home in stable condition. Impression: Successful, uncomplicated ultrasound guided core biopsy of area of concern in the left breast. PATHOLOGY STATUS: Results pending. Pathology Results: Result: Benign, Fat necrosis. LEFT BREAST, ELEVEN O'CLOCK, ULTRASOUND GUIDED NEEDLE CORE BIOPSY: Fat necrosis and scar with calcifications. Negative for malignancy. Overall Assessment: Benign Management: Diagnostic Mammogram of the left breast in 6 months. Electronically signed and approved by: Omar Wang DO
--- NOTE | 2022-10-06 08:17 | USB ---
Prior Study Comparison: 06/10/2021 Bilateral Diagnostic Mammogram, [facility]. 12/12/2021 Left MG 3D diag mammo w/cad LT, [facility]. 06/12/2022 Bilateral MG 3D diag mammo w/cad JENNIFER, [facility]. 09/24/2022 Left US breast limited LT, [facility]. Pathology Description: Location: 11 o'clock. The ultrasound guided cyst aspiration procedure was explained to the patient. The risks, benefits, alternatives were discussed. An informed consent was then obtained. A time out was performed. The patient was placed in supine positioning for imaging and for the procedure. The overlying skin was prepped with betadine and sterilely draped in usual sterile fashion. 5 ml 1% lidocaine was used as anesthetic into the skin and deeper breast tissue up to area of concern in the 11:00 4 cm from the nipple. Under ultrasound guidance, an 14-gauge needle was advanced into the cyst and aspiration yielded 2 mL of purulent debris. The fluid was labeled and sent for laboratory analysis. A HydroMARK T4 clip was left in lesion. Good hemostasis was obtained with direct pressure. Postprocedure mammogram: The patient was transferred to mammography for physician ordered post procedure mammogram for clip placement verification. The clip is in the expected region of the biopsy. The patient tolerated the procedure well without any immediate complication. The patient was discharged to home in stable condition. Impression: Successful ultrasound guided cyst aspiration left breast. Cytology pending. Pathology Results: Result: Benign, Fat necrosis. LEFT BREAST, ELEVEN O'CLOCK, ASPIRATE: Fragments of fat necrosis with calcifications. No cytologically malignant cells identified. Overall Assessment: Benign Management: Diagnostic Mammogram of the left breast in 6 months. Electronically signed and approved by: Omar Wang DO
== END ==
LOC: RADUSWWP 10:03
PROVIDERS: ATTEND Surgery
DX: N64.1 Fat necrosis of breast (principal)
CPT/HCPCS: 88305; 88173; 77065; 19000; 19083; A4648; 76942

== ENCOUNTER 2023-02-02 08:06 | Day surgery (SDC) | payer MEDICARE, OTHER ==
[2023-01-28 10:40] VITALS: BMI 29.2
[~2023-02-02 08:06] MED LIST changes: +ALPRAZolam 0.25 MG TAB PO PRN; +ALPRAZolam 0.5 MG TAB PO PRN; +ASPIRIN 325 MG TAB PO PRN; -DEXAMETHASONE SOD PHOSPHATE 10 MG/ML 1 ML VIAL IV ONE; +HEPARIN SODIUM,PORCINE (1 ML) 2,500 UNIT in SODIUM CHLORIDE 0.9% 250 ML IRRIGATION PRN; +HEPARIN SODIUM,PORCINE 10,000 UNIT in SODIUM CHLORIDE 0.9% 1,000 ML IRRIGATION PRN; -HEPARIN SODIUM,PORCINE 5,000 UNIT/ML 1 ML VIAL SQ ONE; -LACTATED RINGERS 1,000 ML IV SCH; -LIDOCAINE 1% (10MG/ML) FOR IV START INTRADERMA PRN; -MIDAZOLAM 2 MG/2 ML VIAL IV PRN; -ONDANSETRON 4 MG/2 ML VIAL IVP ONE; -Pre Op ABX Message 1 EACH MISC MISCELLANE ONE; +SODIUM CHLORIDE 0.9% 1,000 ML in EMPTY BAG 1 BAG IV ONE; +ZOLPIDEM 5 MG TAB PO PRN; -fentaNYL (PF) 50 MCG/ML 2 ML AMP IV PRN
[2023-02-02] MEDS ORDERED: SODIUM CHLORIDE 0.9% 1,000 ML IV ONE (08:19)
[2023-02-02 08:36] VITALS: RESP 16; TEMP 97.5
[2023-02-02 08:46] LABS: Basophils # (A) 0.1 k/uL (0-0.2); Basophils % (A) 1 %; Eosinophils # (A) 0.2 k/uL (0-0.7); Eosinophils % (A) 1 %; HCT 49.3 % (34.0-46.0); HGB 16.3 gm/dL (11.4-16.0); Lymphocytes # (A) 2.2 k/uL (1.0-4.8); Lymphocytes % (A) 20 %; MCH 31.1 pg (25.0-35.0); MCV 94.1 fL (80.0-100.0); Monocytes # (A) 0.7 k/uL (0-1.0); Monocytes % (A) 6 %; Neutrophils # (A) 7.5 k/uL (1.3-7.7); Neutrophils % (A) 69 %; Platelet Count 301 k/uL (150-450); RBC 5.24 m/uL (3.80-5.40); RDW 12.7 % (11.5-15.5); WBC 10.9 k/uL (3.8-10.6)
[2023-02-02] MEDS ORDERED: LIDOCAINE 1% INJ 10MG/ML (20 ML MDV) ONE (09:40)
[2023-02-02 09:52] LABS: African American GFR (CKD) >90 (>60 ml/min/1.73 sqM); Anion Gap 9 mmol/L; Blood Urea Nitrogen 12 mg/dL (7-17); Calcium 9.2 mg/dL (8.4-10.2); Carbon Dioxide 27 mmol/L (22-30); Chloride 102 mmol/L (98-107); Glucose 113 mg/dL (74-99); Non-African American GFR(CKD) >90 (>60 ml/min/1.73 sqM); Potassium 4.2 mmol/L (3.5-5.1); Sodium 138 mmol/L (137-145)
[2023-02-02] MEDS ORDERED: MIDAZOLAM 2 MG/2 ML VIAL IVP ONE (10:21)
[2023-02-02] MEDS: LIDOCAINE 1% INJ 10MG/ML (20 ML MDV) SQ ONE ×2 (10:24→10:44)
[2023-02-02] MEDS ORDERED: HYDROmorphone 1 MG/ML 1 ML SYRINGE IVP ONE (10:44)
[2023-02-02] MEDS ORDERED: HEPARIN SODIUM 1,000 UN/ML (10ML VL) IV ONE (10:45)
[2023-02-02] MEDS ORDERED: HEPARIN SODIUM 1,000 UN/ML (10ML VL) ONE (10:47)
[2023-02-02] MEDS ORDERED: PROTAMINE SULFATE 10 MG/ML 5 ML VIAL ONE (11:36)
[2023-02-02] MEDS ORDERED: CLOPIDOGREL 75 MG TAB ONE (11:40)
[2023-02-02] MEDS ORDERED: PROTAMINE SULFATE 10 MG/ML 5 ML VIAL IVPB ONE (11:40)
[2023-02-02] MEDS ORDERED: IOPAMIDOL-370 100ML BTL INJ ONE ×2 (11:41)
[2023-02-02] MEDS ORDERED: CLOPIDOGREL 75 MG TAB PO ONE (11:41)
--- NOTE | 2023-02-02 12:03 | P.OP ---
Date of Procedure: 02/02/23 Preoperative Diagnosis: Left upper extremity ischemia Left subclavian artery stenosis Left upper extremity subclavian steal syndrome Postoperative Diagnosis: Same Procedure(s) Performed: Ultrasound guided right common femoral artery access Aortogram with selective left upper extremity angiogram Ultrasound guided left brachial artery access Aorta, left subclavian artery intravascular ultrasound Percutaneous balloon angioplasty of the left subclavian artery with 6x20mm [place] Percutaneous transluminal stenting of the left subclavian artery with 8x26mm Lifestream stent Conscious sedation x 85 minutes Anesthesia: local Surgeon: Davi James Estimated Blood Loss (ml): 5 Pathology: none sent Condition: stable Disposition: PACU Indications for Procedure: 67 year old female with history of left upper extremity pain, numbness who had a carotid Doppler which demonstrated retrograde flow to the left vertebral artery. She presents today for aortogram and possible intervention on the left subclavian artery. Operative Findings: Left subclavian artery calcific stenosis greater than 90% at the origin. Description of Procedure: After written and informed consent was obtained the patient all risks, benefits and competitions were described the patient is brought to the [employer] and laid in a supine position with her left arm outstretched on an armboard. The area of the groins and upper arm were prepped and draped in usual sterile fashion. Timeout was performed in normal fashion. Utilizing ultrasound the right common femoral artery was located and shown to be patent without any significant calcific disease or stenosis. The artery was then cannulated with a micro- access needle and upsized utilizing Seldinger technique a 5-[place] sheath. 035 Glidewire was then placed into the aorta at the arch and arch angiogram was obtained demonstrating widely patent brachiocephalic and left common carotid artery with no significant disease or stenosis noted. There was severe calcific disease noted in the left subclavian artery just at the takeoff with reconstitution distally and refilling of the vertebral artery. Due to this and the angle of the aortic arch was determined to access the left brachial artery. Utilizing ultrasound the brachial artery was located shown to be patent without any significant calcific disease or stenosis. It was then cannulated and utilizing Seldinger technique a 7-[place] sheath was placed in usual fashion. Patient was then administered 5000 units of heparin and followed with ACTs. Utilizing an 035 Glidewire and a crossing catheter the lesion was crossed and the crossing catheter was placed into the descending aorta. Angiogram was then obtained demonstrating good intraluminal access. Guidewire was once again placed and its balloon angioplasty was performed with a 6 x 20 mm balloon across the lesion. Once completed another angiogram was obtained and sizes were attempted to be calculated with the fluoroscopy but due to the imaging it was difficult and therefore intravascular ultrasound was chosen to be performed. The guidewire was then exchanged for an 014 guidewire and the intravascular ultrasound catheter was placed and measurements were obtained of the subclavian artery at the lesion as well as distal just before the takeoff of the vertebral artery which measured 7.6-8.3 mm. Due to this a covered stent was chosen to be placed measuring 8 x 26 mm. The guidewire was then upsized to an 035 in the normal fashion and a Bard Lifestream covered stent was placed in normal fashion. Once completed final angiogram was obtained demonstrating good brisk flow through the stents with 100% resolution of the stenosis. All the carotid and vertebral arteries were filling without any issues. All guidewires and catheters were then removed and sheaths were removed and pressure was held for hemostasis. ACT was elevated over 300 and therefore patient was administered protamine to assist with hemostasis. The patient tolerated the procedure well had a palpable brachial pulse at the conclusion of the procedure and was sent to PACU for recovery. Plan - Discharge Summary Discharge Rx Participant: Yes New Discharge Prescriptions: No Action Omeprazole [PriLOSEC] 40 mg PO DAILY LORazepam [Ativan] 1 mg PO BID Cyclobenzaprine [Flexeril] 10 mg PO TID Levothyroxine Sodium [Synthroid] 50 mcg PO DAILY Vit C/E/Zn/Coppr/Lutein/Zeaxan [Preservision Areds 2 Softgel] 1 capsule PO DAILY Albuterol Sulfate [Ventolin HFA] 1 - 2 puff INHALATION Q6H PRN PRN Reason: Wheezing Anastrozole 1 mg PO DAILY Aspirin [[place] Aspirin EC] 81 mg PO Q2D Discharge Medication List Cyclobenzaprine [Flexeril] 10 mg PO TID 07/28/19 [History] LORazepam [Ativan] 1 mg PO BID 07/28/19 [History] Levothyroxine Sodium [Synthroid] 50 mcg PO DAILY 07/28/19 [History] Omeprazole [PriLOSEC] 40 mg PO DAILY 07/28/19 [History] Vit C/E/Zn/Coppr/Lutein/Zeaxan [Preservision Areds 2 Softgel] 1 capsule PO DAILY 07/11/21 [History] Anastrozole 1 mg PO DAILY 12/19/21 [History] Aspirin [[place] Aspirin EC] 81 mg PO Q2D 09/25/22 [History] Albuterol Sulfate [Ventolin HFA] 1 - 2 puff INHALATION Q6H PRN 01/28/23 [History] Follow up Appointment(s)/Referral(s): Davi James DO [STAFF PHYSICIAN] - 1 Week (APPOINTMENT MADE ON January @ 2:30PM ) Patient Instructions/Handouts: Peripheral Artery Disease (DC), Moderate Sedation (DC), Peripheral Vascular Stent Placement (DC) Activity/Diet/Wound Care/Special Instructions: AVOID PUSHING, PULLING, LIFTING MORE THAN 5LBS FOR 5 DAYS. OK TO SHOWER TOMORROW, NO SOAKING IN POOLS, SWIMMING, HOT TUBS TO AVOID RISK INFECTION. REMOVE DRESSING BEFORE SHOWER. SIGNS OF INFECTION IE: FEVER, RASH, UNUSUAL DRAINAGE FROM PUNCTURE SITE, HARD KNOT OR SWELLING CONTACT DOCTOR TO BE EVALUATED. FOR BLEEDING FROM SITE, APPLY FIRM PRESSURE TO SITE AND GO TO ER. DO NOT DRIVE SELF. MEDICATION DIRECTED BY DR JAMES. Discharge Disposition: HOME SELF-CARE
--- NOTE | 2023-02-02 12:16 | IR ---
EXAMINATION TYPE: IR stent intravas non coronary DATE OF EXAM: 02/02/2023 COMPARISON: NONE HISTORY: Fluoroscopy time. Fluoroscopy was provided to the referring clinician.
[2023-02-02] MEDS ORDERED: ACETAMINOPHEN TAB 500 MG TAB PO ONE (12:30)
[2023-02-02 16:02] VITALS: BP 124/58; PULSE 79
== END 2023-02-02 16:30 | disposition home or self-care (01) ==
LOC: CATHCVL 08:06
PROVIDERS: ATTEND Surgery
DX: I70.208 Unspecified atherosclerosis of native arteries of extremities, other extremity (principal); G45.8 Other transient cerebral ischemic attacks and related syndromes; Z79.811 Long term (current) use of aromatase inhibitors; Z79.82 Long term (current) use of aspirin; Z79.899 Other long term (current) drug therapy
CPT/HCPCS: 36215; 37236; 37252; 80048; 85025; C1769 ×4; C1894 ×3; C1887; C1725; C1753; J2250; J2720; J2001; J1644; J1170; Q9967

== ENCOUNTER → 2023-07-10 | Outpatient (CLI) | payer MEDICARE, OTHER ==
[2023-07-10 13:38] VITALS: BP 146/89; PULSE 81; RESP 16; TEMP 97.8
--- NOTE | 2023-07-10 13:48 | P.PN ---
Subjective Progress Note Date: 07/10/23 Principal diagnosis: fat necrosis left breast/stage IA invasive ductal cancer 07-10-23 Fat necrosis left breast/left breast stage IA invasive ductal carcinoma Tamy is a 68-year-old white female diagnosed with stage IA left breast cancer in 2019. She underwent a lumpectomy and sentinel node [place]. [place] [id number]. She is currently on an aromatase inhibitor. She did not have chemotherapy. Bilateral mammogram was done on 12-18-22 which was BIRADS 2 She was concerned that she felt a lump in the left breast which had started recently and on examination she did have some nodularity in the medial aspect of the breast. Core biopsy was done of this area on which revealed fragments of fat necrosis with calcifications. The patient tolerated the biopsy without difficulty. She continues to have some firmness in her left breast which has been biopsied in the past and consistent with fat necrosis. This is in the medial aspect of the breast. It has not changed in size. Note Dr. Strauss reviewed 04-20-23, osteopenia on fosomax and prolia cardiac stint February 2023 Family History: daughter: bilateral breast cancer niece: breast cancer brother: pancreatic cancer Hormonal history: Menarche: 12 , breast fed: Negative Age of first 16 Menopause: Hysterectomy of 45, she believes they took her ovaries it was done at the time of her bladder suspension control pills: None Hormones: Negative Surgical history: Total abdominal hysterectomy 3 C-sections Appendectomy cardiac stint left arm following stint, blockage in artery after the stint Medical history: Arthritis Social history: Smoke: One pack for 4 days for 45 years Alcohol: Negative Drugs: Negative Review of systems: HEENT: negative Lungs: COPD Heart: Palpitations VAscular: carotid arteries with some blockage GI: negative : JAMEEL/BSO muscular: myalgias Objective - Vital Signs Vital signs: Intake & Output 07/09/23 07/10/23 07/10/23 18:59 06:59 18:59 Weight 72.575 kg - Constitutional General appearance: Present: cooperative - EENT Eyes: Present: EOMI - Neck Neck: Present: normal ROM - Respiratory Respiratory: bilateral: CTA - Cardiovascular Rhythm: regular Heart sounds: normal: S1, S2 - Integumentary Integumentary: Present: normal turgor - Musculoskeletal Musculoskeletal: Present: gait normal - Psychiatric Psychiatric: Present: A&O x's 3, appropriate affect, intact judgment & insight - Additional findings Additional findings: Breast Exam: BRA: 36B Inspection: Well-healed scar left breast from prior surgery Palpation: Right breast: Multi-positional exam no dominant masses or nodules of concern Right axilla: No adenopathy of concern Left breast: A mid breast there is firmness consistent with the area which was biopsied in the past however this seems to be increased in size, no other dominate masses or nodules of concern Left axilla: No adenopathy of concern Assessment and Plan Assessment: Impression: Arthritis Patient status post left breast lumpectomy/radiation therapy/anestrazole, chemotherapy Patient had a core biopsy of the left breast in September 2022 which was fat necrosis, however the area seems to have increased in size Plan: Core biopsy of palpable change left breast mid inner aspect to be done now bilateral mammogram in November with appointment continue annestrazole follow with medical and radiation oncology CC: Dr. Amaro
== END ==
LOC: WWCWWP 12:52
PROVIDERS: ATTEND Surgery
DX: R92.1 Mammographic calcification found on diagnostic imaging of breast (principal); R92.8 Other abnormal and inconclusive findings on diagnostic imaging of breast; C50.912 Malignant neoplasm of unspecified site of left female breast; N64.1 Fat necrosis of breast; N63.20 Unspecified lump in the left breast, unspecified quadrant; F17.210 Nicotine dependence, cigarettes, uncomplicated; M85.80 Other specified disorders of bone density and structure, unspecified site; M19.90 Unspecified osteoarthritis, unspecified site; Z92.3 Personal history of irradiation; Z80.3 Family history of malignant neoplasm of breast; Z98.890 Other specified postprocedural states; Z48.817 Encounter for surgical aftercare following surgery on the skin and subcutaneous tissue; Z79.811 Long term (current) use of aromatase inhibitors

== ENCOUNTER → 2023-08-12 | Outpatient (CLI) | payer MEDICARE, OTHER ==
--- NOTE | 2023-08-12 12:12 | P.PCN ---
Date of Procedure: 08/12/23 Preoperative Diagnosis: Palpable change left breast upper inner quadrant Postoperative Diagnosis: Same Procedure(s) Performed: Core biopsy left breast palpable abnormality Anesthesia: local Surgeon: Lizabeth Elizondo Pathology: other (Breast tissue) Condition: stable Disposition: same day Indications for Procedure: Palpable change left breast upper inner quadrant Operative Findings: Dense breast tissue Description of Procedure: The location in the upper inner quadrant of the left breast was prepped using chlorhexidine. The right area where the biopsy was to be performed was anesthetized using 1% lidocaine. A kristi was made in the skin using a 15 blade. A 12-gauge breast biopsy device from [id number] was utilized to obtain a specimen. The needle was inserted into the area of concern. The gun was fired. The specimen was retrieved. 2 specimens were retrieved. These are sent to pathology. The patient tolerated the procedure in stable condition. The patient will follow up in two weeks.
[2023-08-12 14:38] VITALS: BP 130/73; PULSE 100; RESP 17; TEMP 98.1
== END ==
LOC: WWCWWP 10:31
PROVIDERS: ATTEND Surgery
DX: N63.22 Unspecified lump in the left breast, upper inner quadrant (principal); R92.30 Dense breasts, unspecified; F17.200 Nicotine dependence, unspecified, uncomplicated
CPT/HCPCS: 88305

== ENCOUNTER → 2023-12-21 | Outpatient (CLI) | payer MEDICARE, OTHER ==
--- NOTE | 2023-12-21 13:48 | MM ---
Reason for Exam: Follow-up at short interval from prior study. Last screening mammogram was performed 5 month(s) ago. Patient History: Menarche at age 12. First Full-Term at age 16. Left ovary removed at age 45. Right ovary removed at age 45. Hysterectomy at age 45. Postmenopausal. Breast cancer, left, age 64. Previous chest radiation therapy at age 64. Hormonal Contraceptives for 6 months. 10/01/2022, Benign US breast aspiration single LT on the left side. 10/01/2022, Benign US breast needle core LT on the left side. 09/27/2019, Lumpectomy on the Left side. 09/27/2019, Malignant Core Biopsy on the left side. 11/2019, Radiation Therapy on the left side. Niece had breast cancer, age 49. Daughter had breast cancer, age 45. Tissue Density: The breasts are heterogeneously dense, which may obscure small masses. Findings: Analyzed By CAD. Stable postoperative lumpectomy changes left breast. No evidence for new mass or distortion within either breast. No suspicious microcalcifications. Overall Assessment: Benign, BI-RAD 2 Management: Diagnostic Mammogram of both breasts in 1 year. . Results were given to the patient verbally at the time of exam. Patient should continue monthly self-breast exams. A clinical breast exam by your physician is recommended on an annual basis. This exam should not preclude additional follow-up of suspicious palpable abnormalities. Note on Elza scores and lifetime risk: 1. A Elza score greater than 3% is considered moderate risk. If this is the case, consider specialist referral to assess eligibility for a risk reducing agent. 2. If overall lifetime risk for the development of breast cancer is 20% or higher, the patient may qualify for future screening with alternating mammogram and breast MRI. [facility], , 12/21/2023 1:21 PM. Electronically signed and approved by: Hollis Newton M.D. Radiologis
== END | disposition home or self-care (01) ==
LOC: RADMAMWWP 12:47
PROVIDERS: ATTEND Surgery
DX: Z85.3 Personal history of malignant neoplasm of breast (principal)
CPT/HCPCS: 77062; 77066

== ENCOUNTER → 2024-01-11 | Outpatient (CLI) | payer MEDICARE, OTHER ==
[2024-01-11 14:03] LABS: African American GFR (CKD) >90 (>60 ml/min/1.73 sqM); Blood Urea Nitrogen 13 mg/dL (7-17); Non-African American GFR(CKD) >90 (>60 ml/min/1.73 sqM)
--- NOTE | 2024-01-11 14:44 | CT ---
EXAMINATION TYPE: CT angio chest DATE OF EXAM: 01/11/2024 2:36 PM COMPARISON: None HISTORY: Subclavian steal Technique: Multiple axial images obtained through the thoracic spine abdomen film administration of n onionic IV contrast. The exam was performed according to department CTA protocol.. FINDINGS: There are moderate emphysematous changes in the upper lobes. There is no suspicious lung mass. There is no airspace consolidation or abnormal interstitial density . There is no pleural effusion, pleural thickening or pneumothorax. There is no pulmonary embolus. There is no thoracic aortic aneurysm. There is heavy calcification origin left subclavian artery resulting in a severe stenosis. Limited scanning the upper abdomen reveals no gross abnormality. No focal osseous lesions are seen. Impression 1. Severe stenosis of the proximal left subclavian artery secondary to heavily calcified plaque. 2. No acute cardiac pulmonary disease. [facility], , 01/11/2024 2:41 PM
== END | disposition home or self-care (01) ==
LOC: RADCTMAIN 12:58
PROVIDERS: ATTEND Surgery
CPT/HCPCS: 36415; 71275; 82565; 84520